=== PATIENT | male | born 1955 | race Caucasian/White ===

== ENCOUNTER → 2023-11-08 10:04 | Outpatient (REF) | payer MEDICARE, OTHER, SELFPAY | LOC: DHCBS HW 10:04 | PROVIDERS: ATTENDING PHYSICIAN Internal Medicine Cardiovascular Disease; FAMILY PHYSICIAN Family Medicine | DX: I35.0 Nonrheumatic aortic (valve) stenosis (principal) | CPT/HCPCS: 93306 ==

== ENCOUNTER → 2024-02-17 10:05 | Outpatient (REF) | payer MEDICARE, OTHER, SELFPAY | LOC: RAD 10:05 | PROVIDERS: ATTENDING PHYSICIAN Internal Medicine Cardiovascular Disease; FAMILY PHYSICIAN Family Medicine | DX: I73.9 Peripheral vascular disease, unspecified (principal); M48.00 Spinal stenosis, site unspecified | CPT/HCPCS: 72110; 93922; 93925 ==

== ENCOUNTER → 2024-06-07 10:03 | Outpatient (REF) | payer MEDICARE, OTHER, SELFPAY | LOC: HWRCS 10:03 | PROVIDERS: ATTENDING PHYSICIAN Internal Medicine Cardiovascular Disease; FAMILY PHYSICIAN Family Medicine | DX: I35.0 Nonrheumatic aortic (valve) stenosis (principal) | CPT/HCPCS: 93306 ==

== ENCOUNTER → 2024-12-13 11:19 | Outpatient (REF) | payer MEDICARE, OTHER, SELFPAY | LOC: HWRCS 11:19 | PROVIDERS: ATTENDING PHYSICIAN Internal Medicine Cardiovascular Disease; FAMILY PHYSICIAN Family Medicine | DX: I35.0 Nonrheumatic aortic (valve) stenosis (principal) | CPT/HCPCS: 93306 ==

== ENCOUNTER 2025-01-24 10:06 | Day surgery (SDC) | payer MEDICARE, OTHER, SELFPAY ==
--- NOTE | 2025-01-23 14:34 | CONSULT.STRU ---
Addendum entered and electronically signed by SALONI Douglas 01/25/25 10:41:
DOS 01/24/2025
Original Note:
Consultation
-
Date/Time Consultation Requested: 01/24/2025
Date/Time Consultation Performed: 01/24/2025
Requesting Provider: Anika Jiang MD
Performing Provider: SALONI Douglas
Reason for Consultation: /TAVR
Patient History
Physicians
Family Physician: Niko Moseley MD
Outpatient Occupational Health Professional: Flash Brown MD
Primary Occupational Health Professional: Flash Brown MD
History of Present Illness
Mr. Mccullough is a very pleasant 69 yom that has a past medical history significant for aortic stenosis, PAF, HTN, HLD, and BPH. His most recent echocardiogram from 12/13/2024 is notable for EF 60-65%, aortic valve P/M 66/39, MAY 1.0, pk elena 4.05, mild
AI, MAC, MG 4, mild to moderate MS, mild TR, PAP 35. From a symptomatology standpoint, patient describes YAO worse over the past several months. Discussed the pathophysiology and treatment options of aortic stenosis including SAVR and TAVR,
Explained the evaluation process comprising of lab work, CT scan, CT surgical consult, dental clearance, and a heart team discussion. TAVR booklet, contact information, prescriptions, and appointments given to patient. Allowed for and answered
questions at bedside.
Past Medical History
Past Medical History: Atrial Fib, BPH, HTN, Valvular Disease (aortic stenosi) and Other (hyperlipidemia)
Past Surgical History
Past Surgical History: Orthopedic (back injections) and Other (cardiac ablation, DCCV)
Dental History
Dr. Evangelist Cabrera-- Patient states he is UTD-- Will send dental clearance
Family History
Mother: at Age (86)
Father: at Age (82)
Social History
Alcohol: None
Drug: None
Tobacco: Non-Smoker
Personal:
Living: With Spouse
Allergies
Allergy/AdvReac Type Severity Reaction Status Date / Time
hydromorphone (From Dilaudid) Allergy Mild Hives Verified 11/29/18 06:46
Home Medications
�Medication �Instructions �Recorded �Confirmed �Type
acetaminophen 325 mg tablet 650 mg PO Q4HPRN PRN pain 12/31/16 01/24/19 History
amlodipine 5 mg tablet (Norvasc) 5 mg PO DAILY 12/31/16 01/24/19 History
apixaban 5 mg tablet (Eliquis) 5 mg PO BID 12/31/16 01/24/19 History
multivitamin (Daily Multiple 1 ea PO DAILY 12/31/16 01/24/19 History
tablet)
cholecalciferol (vitamin D3) 125 5,000 unit PO DAILY 01/24/19 01/24/19 History
mcg (5,000 unit) disintegrating
tablet
dofetilide 250 mcg capsule 250 mcg PO Q12 #60 caps 01/26/19 Rx
metoprolol succinate 25 mg 25 mg PO DAILY #30 tabs 01/26/19 Rx
tablet,extended release 24 hr
STS%
STS %: 2.69
Review of Systems
-
History Source: Patient and Family
General: Reports Fatigue
HEENT: Reports No Symptoms
Respiratory: Reports No Symptoms
Cardiac: Reports No Symptoms
Abdomen/GI: Reports No Symptoms
: Reports No Symptoms
Skin: Reports No Symptoms
Neurological: Reports No Symptoms
Vascular: Reports No Symptoms
Physical Exam
Labs
01/01/2025
HH: 17.2/51.8
plt 209K
BUN/Cr: 21/0.84
Diagnostic Studies
ECHOCARDIOGRAM 12/13/2024:
CONCLUSIONS
Normal left ventricular size and systolic function. No regional wall motion
abnormalities are seen. LV ejection fraction is 60-65% by Canela's method of
discs. Moderate to severe concentric left ventricular hypertrophy. Stage III
diastolic dysfunction suggestive of restrictive filling pattern and increased
filling pressures.
Normal right ventricular size and function.
Thickened mitral valve leaflets with mitral annular calcification, a mean
gradient of 4 mmHg consistent with mild mitral valve stenosis. Mild to
moderate mitral regurgitation.
Calcified, thickened aortic valve with peak and mean gradients of 66 and 39
mmHg, respectively. Estimated MAY is 1.0 cm2., using an LVOT of 2.2 cm.
Moderate to severe aortic stenosis. Mild aortic regurgitation.
Tricuspid valve opens normally with mild tricuspid regurgitation. Estimated
pulmonary artery pressure of 35 mmHg, assuming a right atrial pressure of 3
mmHg.
Proximal ascending aorta is 4.5 cm.
Compared to prior study 06/07/2024 proximal ascending aorta is now 4.5 cm
previously measured at 4.2 cm.
Procedure Type:�Isolated AVR
Perioperative Outcome Estimate %
Operative Mortality 2.69%
Morbidity & Mortality 15%
Stroke 1.1%
Renal Failure 2.27%
Reoperation 4.44%
Prolonged Ventilation 9.51%
Deep Sternal Wound Infection 0.115%
Long Hospital Stay (>14 days) 3.69%
Short Hospital Stay (<6 days)* 38.4%
Exam
General: Well Developed, Well Nourished, No Apparent Distress and Comfortable
HEENT: Normocephalic
Neck: Trachea Midline
Respiratory: Clear
Cardiac: Murmur (iV/ SANDRO)
GI: Soft, Non Tender and Non Distended
Rectal: Deferred by Provider
Skin: Warm and Dry
Neuro: Awake, Alert, Oriented and AO x 3
Extremities: Lower Level Edema
Psych: Calm
Assessment / Plan
-
Aortic Stenosis
Continue TAVR evaluation
Will hold Eliquis x 48 hours before TAVR. Initiate aspirin while Eliquis held. Will d/c aspirin when Eliquis resumed
TAVR CT scan
CT surgical consult
Frailty testing and KCCQ12 at consult
Dental clearance
Heart team discussion
Data Reviewed
-
Scrub Technician: Report Reviewed by me and Discussed with Physician
Echo: Report Reviewed by me and Discussed with Physician
Labs: Labs Reviewed by me
Old Records: Reviewed
Total Time Spent with Patient (in minutes): 45
[2025-01-24] VITALS (12 sets, daily range): BP systolic 106–146; BP diastolic 53–92; BMI 37.8
[2025-01-24] MEDS: LOW STRENGTH ASPIRIN 324 MG PO (11:10)
--- NOTE | 2025-01-24 12:06 | ITS.CL.CATH ---
[facility] - Catheterization
Cardiac Catheterization
Procedure Report:
LEFT AND RIGHT HEART CATHETERIZATION
Date of Procedure: January 24, 2025
Referring: Flash Brown
PROCEDURES:
1. Left heart catheterization, coronary angiogram.
2. Moderate sedation.
3. Right heart catheterization
INDICATION: Severe symptomatic aortic stenosis, preworkup for AVR
ACCESS: Right radial artery, 6Fr. sheath, under US guidance.
HEMODYNAMICS : (mmHg)
RA (m) : 12
RV (s/d,m) : 60/7, 16
PA (s/d, m) : 58/23, 39
PCWP (m) : 28 with V waves to 47 mmHg
PA saturation: 72.4% on room air
AO saturation: 96.0% on room air
RA saturation: 72.3% on room air
Cardiac Output : 4.6 L/min
Cardiac Index : 2.04 L/min/m-2
Systemic vascular resistance: 1470 dsc^(-5)
Pulmonary vascular resistance: 2.35 del angel unit
AO (s/d) : 127/71
CORONARY FINDINGS
Dominance: Right
Left Main Trunk (LMT): Large caliber vessel that gives rise to the LAD and LCx branches and is free of angiographic disease.
Left Anterior Descending Artery (LAD): Large caliber vessel that gives off 2 major diagonal branches as it courses along the anterior inter-ventricular groove before wrapping around the cardiac apex. Proximal LAD has an eccentric 80 to 85%
stenosis at the level of the takeoff of small caliber D1.
Left Circumflex Artery (LCx): Large caliber vessel that gives off 1 major obtuse marginal (OM) branch as it courses along the atrio-ventricular (AV) groove. The LCx and its branches are free of angiographic disease.
Right Coronary Artery (RCA): Medium caliber dominant vessel that gives rise to the posterior descending artery (RPDA) and postero-lateral ventricular (RPLV) branches distally. The distal vessels have mild diffuse atherosclerotic plaque.
SEDATION: 47 minutes of procedural sedation was utilized. IV Midazolam and IV Fentanyl were administered. An independent outside medical sales representative was present to assist with and help manage the patient's level of consciousness and physiologic status.
RADIATION SUMMARY: Fluoro Time (min): 4.9, Dose (mGy): 688.15, DAP (Gy.cm2) : 54
Closure Device: There were no immediate intra-procedural complications. The sheath was pulled in the senior label specialist and a vascular-band applied to the right wrist for radial artery hemostasis using the patent hemostasis technique.
CONCLUSIONS
1. Proximal LAD has a eccentric 80 to 85% stenosis at the level of the takeoff of a small caliber D1.
2. Known severe symptomatic aortic stenosis by most recent echocardiogram.
3. Significantly elevated right and left-sided filling pressures with borderline low cardiac output.
RECOMMENDATIONS
1. Wean radial band per protocol. Monitor right hand perfusion and for bleeding from the radial site following removal of the vascular-band following trans-radial access.
2. Continue aggressive medical therapy and risk factor modification for secondary CAD prevention.
3. Hydrate with normal saline to mitigate the risk of contrast-induced acute kidney injury.
4. Continue with workup for TAVR versus SAVR with a CTA of chest, abdomen and pelvis per proper protocol and CT surgical consult with plan to discuss at structural heart meeting afterwards regarding TAVR plus proximal LAD PCI versus SAVR and
single-vessel CABG
Copy to: Flash Brown
Anika Jiang MD, FAC, [facility]
== END 2025-01-24 15:55 | disposition home or self-care (01) ==
LOC: CATH 10:06
PROVIDERS: ATTENDING PHYSICIAN Internal Medicine Interventional Cardiology; FAMILY PHYSICIAN Family Medicine; OTHER PHYSICIAN Internal Medicine Cardiovascular Disease
DX: I25.10 Atherosclerotic heart disease of native coronary artery without angina pectoris (principal); E78.49 Other hyperlipidemia; I08.3 Combined rheumatic disorders of mitral, aortic and tricuspid valves; I11.0 Hypertensive heart disease with heart failure; I48.0 Paroxysmal atrial fibrillation; I48.91 Unspecified atrial fibrillation
CPT/HCPCS: 99152; 99153; 93456; C1894; Q9967

== ENCOUNTER → 2025-02-06 09:10 | Outpatient (REF) | payer MEDICARE, OTHER, SELFPAY | LOC: RAD 09:10 | PROVIDERS: ATTENDING PHYSICIAN Nurse Practitioner Acute Care; FAMILY PHYSICIAN Family Medicine | DX: I35.0 Nonrheumatic aortic (valve) stenosis (principal) | CPT/HCPCS: 74174; 75572; Q9967 ==

== ENCOUNTER 2025-03-02 08:14 | Inpatient (IN) | payer MEDICARE, OTHER, SELFPAY ==
[2025-02-28 12:03] VITALS: BMI 37.7
[2025-02-28 12:39] LABS: Urine Character Clear (Clear)
[2025-02-28 12:41] LABS: Hematocrit 44.5 % (39.0-52.0); Hemoglobin 15.2 g/dL (13.0-18.0); Mean Corp Hgb Conc. 34.2 g/dL (33.0-37.0); Mean Corpuscular Volume 88.5 fL (80.0-94.0); Nucleated Red Blood Cells % 0 % (-); Platelet Count 171 10^3/uL (130-400); Red Cell Dist. Width 14.0 % (11.5-14.5)
[2025-02-28 12:54] LABS: INR 1.05; PT 14.2 Sec (11.4-14.6)
[2025-02-28 13:01] LABS: ALT (SGPT) 60 U/L (0-50); AST (SGOT) 42 U/L (17-59); Albumin 4.9 g/dl (3.5-5.0); Alkaline Phosphatase 55 U/L (38-126); Blood Urea Nitrogen 20 mg/dl (9-20); Calcium 9.6 mg/dl (8.4-10.2); Carbon Dioxide 27 mmol/L (22-30); Chloride 104 mmol/L (98-107); Estimated Creatinine Clearance 92 ml/min; Glucose 98 mg/dl (70-99); Potassium 4.1 mmol/L (3.5-5.1); Sodium 139 mmol/L (135-145); Total Protein 7.4 g/dl (6.3-8.2); eGFR > 60.00
[2025-02-28 13:48] LABS: Glycohemoglobin (HgbA1c) 5.0 % (4.0-5.6)
--- NOTE | 2025-02-28 15:00 | CM ---
spoke to pt in PAT's, we discussed preop CT surgery instructions including sternal and driving restrictions. he is prev indep, lives with his in a ranch home with a basement he uses daily. there are 5 steps to enter, he has a cpap he uses and
said he will bring in his own mask. he has the cardiac surgery book, soap and instructions. he is agreeable to a f/u visit from the ct transitional care nurse after dc. plan is for AVR/CABG 03/02, cm role explained and all questions answered.
[2025-03-02] VITALS (12 sets, daily range): BP systolic 98–129; BP diastolic 64–81; BMI 37.7
[2025-03-02] MEDS: MAGNESIUM OXIDE 500 MG PO (08:48)
[2025-03-02] MEDS: PROTONIX 40 MG PO (08:48)
[2025-03-02] MEDS: BACTROBAN 2% OINTMENT 1 APPLIC NASAL ×2 (08:48→20:08)
[2025-03-02] MEDS: LOPRESSOR 25 MG PO (08:48)
--- NOTE | 2025-03-02 09:02 | PTCARENOTE ---
Patient admitted to CVICU. Surgical clip and CHG prep completed. BUE BPs obtained. Pre-op meds given. All equipment at bedside to go with patient to CVOR. Patient oriented to room and call callahan system. All needs and questions answered at this time,
call callahan within reach.
--- NOTE | 2025-03-02 10:52 | W.CVOR.SURPR ---
CVOR Surgeon Immed Pre Op
-
I have examined this patient prior to performance of the scheduled procedure.
The patient's condition is unchanged from the time of the dictated/written History and
Physical and the patient is able to undergo the scheduled procedure.
SAVR + MAZE + CABG
[2025-03-02 12:00] LABS: Urine Character Clear (Clear)
[2025-03-02 12:16] LABS: ACT+ - POC 115 Seconds (82-134)
--- NOTE | 2025-03-02 12:34 | CM ---
pt in OR today, cm to follow.
[2025-03-02 14:10] LABS: B.E. - POC 1.5 mmol/L; Glucose - POC 108 mg/dl (70-99); HCO3 - POC 27 mmol/L (21-28); Hematocrit - POC 37 % PCV (42-52); Hemodilution- POC No; Hemoglobin Calculated - POC 12.7; Ionized Calcium - POC 1.18 mmol/L (1.15-1.33); Lactate - POC 0.97 mmol/L (0.36-0.75); O2 Saturation %Calculated-POC 99.5 % (94-98); PCO2 - POC 42 mmHg (35-48); PO2 - POC 162 mmHg (83-108); POC Comment PRE; Potassium - POC 3.7 mmol/L (3.5-5.1); Sodium - POC 141 mmol/L (136-145); Specimen Type - POC Arterial; pH - POC 7.41 (7.35-7.45)
[2025-03-02 14:12] LABS: ACT+ - POC > 1003 Seconds (82-134)
[2025-03-02 14:44] LABS: ACT+ - POC > 1003 Seconds (82-134)
[2025-03-02 14:46] LABS: B.E. - POC 4.4 mmol/L; Glucose - POC 149 mg/dl (70-99); HCO3 - POC 30 mmol/L (21-28); Hematocrit - POC 36 % PCV (42-52); Hemodilution- POC Yes; Hemoglobin Calculated - POC 12.4; Ionized Calcium - POC 1.07 mmol/L (1.15-1.33); Lactate - POC 0.69 mmol/L (0.36-0.75); O2 Saturation %Calculated-POC 99.9 % (94-98); PCO2 - POC 50 mmHg (35-48); PO2 - POC 298 mmHg (83-108); POC Comment CPB; Potassium - POC 4.8 mmol/L (3.5-5.1); Sodium - POC 141 mmol/L (136-145); Specimen Type - POC Arterial; pH - POC 7.39 (7.35-7.45)
[2025-03-02 15:01] LABS: B.E. - POC 4.3 mmol/L; Glucose - POC 181 mg/dl (70-99); HCO3 - POC 31 mmol/L (21-28); Hematocrit - POC 35 % PCV (42-52); Hemodilution- POC Yes; Hemoglobin Calculated - POC 12.0; Ionized Calcium - POC 1.15 mmol/L (1.15-1.33); Lactate - POC 0.93 mmol/L (0.36-0.75); O2 Saturation %Calculated-POC 99.9 % (94-98); PCO2 - POC 56 mmHg (35-48); PO2 - POC 283 mmHg (83-108); POC Comment CPB; Potassium - POC 4.6 mmol/L (3.5-5.1); Sodium - POC 142 mmol/L (136-145); Specimen Type - POC Arterial; pH - POC 7.35 (7.35-7.45)
[2025-03-02 15:03] LABS: ACT+ - POC 877 Seconds (82-134)
[2025-03-02 15:45] LABS: B.E. - POC 2.9 mmol/L; Glucose - POC 177 mg/dl (70-99); HCO3 - POC 28 mmol/L (21-28); Hematocrit - POC 36 % PCV (42-52); Hemodilution- POC Yes; Hemoglobin Calculated - POC 12.1; Ionized Calcium - POC 1.12 mmol/L (1.15-1.33); Lactate - POC 1.00 mmol/L (0.36-0.75); O2 Saturation %Calculated-POC 99.9 % (94-98); PCO2 - POC 42 mmHg (35-48); PO2 - POC 267 mmHg (83-108); POC Comment WARM; Potassium - POC 4.0 mmol/L (3.5-5.1); Sodium - POC 142 mmol/L (136-145); Specimen Type - POC Arterial; pH - POC 7.43 (7.35-7.45)
[2025-03-02 15:49] LABS: ACT+ - POC 134 Seconds (82-134)
[2025-03-02] MEDS: ANCEF 10 IV ×2 (15:54→17:29)
--- NOTE | 2025-03-02 15:56 | CON.INTV ---
Consultation
Consultation Request
Date/Time Consultation Requested: 03/02/25
Date/Time Consultation Performed: 03/02/25
Performing Provider: Tanner
Reason for Consultation: CVICU
Medical History
-
History of Present Illness:
Patient is a 69-year-old male with history of PAF, hypertension, severe presenting for elective cardiac surgery. He has history of severe aortic valve stenosis with moderate to severe concentric LVH. Recent echocardiogram demonstrating
preserved EF without regional wall motion abnormalities. Left heart catheterization was performed which demonstrated proximal LAD disease. Underwent SAVR, LE maze, CABG on 03/02/2025 and postoperatively transferred to CVICU for further management.
Past Medical History
Past Medical History: Other (see list below)
Social History
Tobacco: Non-smoker
Alcohol: None
Drug: None
Family History
Family History: Reviewed & Not Pertinent
Allergies / Home Medications
Allergies
Allergy/AdvReac Type Severity Reaction Status Date / Time
atorvastatin Allergy Mild Unknown Verified 03/02/25 08:47
hydromorphone (From Dilaudid) Allergy Mild Hives Verified 02/23/25 16:30
Home Medications
�Medication �Instructions �Recorded �Confirmed �Last Taken �Type
amlodipine 5 mg tablet (Norvasc) 5 mg PO DAILY Blood Pressure 12/31/16 03/02/25 02/27/25 08:00 History
apixaban 5 mg tablet (Eliquis) 5 mg PO BID Blood Clot 12/31/16 03/02/25 02/26/25 08:00 History
Prevention/Tx
cholecalciferol (vitamin D3) 50 50 mcg PO BID Supplement 02/23/25 03/02/25 03/01/25 08:00 History
mcg (2,000 unit) capsule (Vitamin
D3)
multivitamin 1 tab PO DAILY Supplement 02/23/25 03/02/25 02/18/25 History
aspirin 81 mg tablet,delayed 81 mg PO DAILY Blood Clot 03/02/25 03/02/25 02/28/25 08:00 History
release Prevention/Tx
dofetilide 250 mcg capsule 250 mcg PO Q12 Arrhythmia 03/02/25 03/02/25 03/01/25 20:00 History
furosemide 40 mg tablet (Lasix) 40 mg PO DAILY Fluid 03/02/25 03/02/25 03/01/25 08:00 History
Retention/Swelling
metoprolol succinate 25 mg 25 mg PO BID Blood Pressure 03/02/25 03/02/25 03/01/25 20:00 History
tablet,extended release 24 hr
Review of Systems
-
Unable to Obtain full review of systems at this time due to: Patient Intubation
Vitals / Labs / Diagnostic Testing
Vital Signs
Temp Pulse Resp BP Pulse Ox
97.4 F 59 18 127/64 99
03/02/25 08:26 03/02/25 08:26 03/02/25 08:26 03/02/25 08:26 03/02/25 08:26
Microbiology
02/28/25 12:15 Nose MRSA Screen - Final
No Methicillin Resistant Staphylococcus aureus isolated.
Diagnostic Testing:
Physical Exam
-
HEENT: Normocephalic, Anicteric and Moist Mucous Membranes
Cardiovascular: S1/S2 and Regular Rhythm
Respiratory: Clear, Non-Labored Respirations and Other (ETT/chest tube)
GI: Soft, Non Distended and Non Tender
Neurology: Other (sedated/intubated)
Skin: Warm, Dry and Good Color
General: Comfortable and Other (NAD)
Assessment
-
Patient is a 69-year-old male with history of PAF, hypertension, severe presenting for elective cardiac surgery. He has history of severe aortic valve stenosis with moderate to severe concentric LVH. Recent echocardiogram demonstrating
preserved EF without regional wall motion abnormalities. Left heart catheterization was performed which demonstrated proximal LAD disease. Underwent SAVR, LE maze, CABG on 03/02/2025 and postoperatively transferred to CVICU for further management.
Severe aortic stenosis, CAD s/p SAVR, CABG 03/02/2025
Perioperative mechanical ventilation
Conditions present prior to admission
PAF status post cardioversion x 2, ablation x 2
Hypertension
Hyperlipidemia
BPH
CAD
Obesity
Plan
S/p AVR, CAB POD #0
Titrate off pressors per protocol
ECHO reviewed with normal function/stage IIID
PA catheter readings reviewed
Management of chest tubes per primary service
Intubated/sedated, initiate SAT when able
Pain control
RASS goal of 0 to -1
Intubated for procedure, SBT trial when patient able to spontaneously breath
Current vent settings: SIMV 500/14/60/5
ABG(s) pending
CXR prior reviewed, no acute findings
Repeat pending -- if stable, can SBT
Extubate per protocol
Maintain supplement oxygen as needed
Prior history of pulmonary disease: none
No prior PFTs for review
Can add nebulizers if needed
Aspiration precautions
Encouraged incentive spirometry, OOB/ambulation/early mobility
Advance diet as tolerated following extubation
GI prophylaxis if indicated for mechanical ventilation >48 hours
Monitor critical I/O's
Jesus/chest tube output
Hb/platelets preoperatively stable, repeat labs pending
Can transfuse if indicated for Hb <7, plt <50 in surgical patients
DVT prophylaxis including SCDs
Insulin protocol initiated and ongoing
Transition to SQ/off as indicated per team
We will follow
Diagnostic Data
Chest X-Ray: 03/25/23- No acute cardiopulmonary process.
CT Scan: TAVR 02/06/25- The liver is diffusely hypoattenuating likely secondary to steatosis. Mild prostatomegaly. The urinary bladder is mildly thickened which may represent an element of chronic outlet obstruction.
Echo: 12/13/24- Normal left ventricular size and systolic function. No regional wall motion abnormalities are seen. LV ejection fraction is 60-65% by Canela's method of discs. Moderate to severe concentric left ventricular hypertrophy. Stage III
diastolic dysfunction suggestive of restrictive filling pattern and increased filling pressures. Normal right ventricular size and function. Thickened mitral valve leaflets with mitral annular calcification, a mean
gradient of 4 mmHg consistent with mild mitral valve stenosis. Mild to moderate mitral regurgitation. Calcified, thickened aortic valve with peak and mean gradients of 66 and 39 mmHg, respectively. Estimated MAY is 1.0 cm2., using an LVOT of 2.2
cm. Moderate to severe aortic stenosis. Mild aortic regurgitation. Tricuspid valve opens normally with mild tricuspid regurgitation. Estimated pulmonary artery pressure of 35 mmHg, assuming a right atrial pressure of 3 mmHg. Proximal ascending aorta
is 4.5 cm. Compared to prior study 06/07/2024 proximal ascending aorta is now 4.5 cm previously measured at 4.2 cm.
PFT's:
Reports and relevant images were personally reviewed.
Critical Care time 50 mins -- The patient is admitted for acute critical illness for the treatment of vital organ failure and/or prevention of further life-threatening conditions. Total care includes time spent in review of history, physical exam,
medications, hemodynamic/ventilator parameters, laboratory data, imaging and discussion with house staff, pharmacy, respiratory therapy, mainspring strip gauger, and nursing.
[2025-03-02 16:04] LABS: B.E. - POC 0.8 mmol/L; Glucose - POC 137 mg/dl (70-99); HCO3 - POC 26 mmol/L (21-28); Hematocrit - POC 34 % PCV (42-52); Hemodilution- POC Yes; Hemoglobin Calculated - POC 11.4; Ionized Calcium - POC 1.25 mmol/L (1.15-1.33); Lactate - POC 1.95 mmol/L (0.36-0.75); O2 Saturation %Calculated-POC 99.9 % (94-98); PCO2 - POC 42 mmHg (35-48); PO2 - POC 262 mmHg (83-108); POC Comment POST; Potassium - POC 3.3 mmol/L (3.5-5.1); Sodium - POC 143 mmol/L (136-145); Specimen Type - POC Arterial; pH - POC 7.40 (7.35-7.45)
--- NOTE | 2025-03-02 16:20 | W.PN.CARDCBS ---
Addendum entered and electronically signed by Meir Corrales DO 03/02/25 17:27:
I saw and examined the patient.
The Staff Nuclear Medicine Technologist's note was reviewed and I agree with the note.
Comment:
Patient seen and examined post procedure. Patient status post CABG x 2, maze, clip, ASD closure, AVR
Remains intubated and sedated on mechanical ventilation, levo at 5. EKG sinus rhythm without significant ST-T abnormality
GENERAL: Sedated
EYE: sclera anicteric
NECK: Supple, no JVD, no carotid bruit appreciated
ENT: normal nose, moist mucosal membranes
CARDIAC: Regular rate and rhythm, +S1/S2, no murmur, rubs, or gallops; chest tubes in place, epicardial wire in place
CHEST/PULMONARY: Intubated, mechanical breath sounds globally
ABDOMEN: Soft, without focal tenderness or distention
NEUROLOGICAL: Alert and oriented x3
SKIN: Warm and dry, no rash
PSYCH: Sedated
Telemetry sinus rhythm
EKG sinus rhythm without significant ST-T abnormality
A/P as below
Wean ventilator, pressors as tolerated
Monitor on telemetry
Continue postoperative care resume beta-maria teresa, amlodipine, dofetilide when able
Aspirin, statin; resume anticoagulation when able as well (Eliquis)
Supportive care
Discussed with nursing, CT surgery
Original Note:
Today's Communication / Plan
-
continue post op care
in SR
Impression / Plan
-
Primary Senior Capital Markets Specialist: Dr. Brown
Assessment:
Status post CABG x 2 in situ RODRIGUEZ to LAD, AO to RSVG to diagonal, SEBASTIAN maze, SEBASTIAN clip, iatrogenic ASD closure, surgical bioprosthetic AVR #27 mm 03/02/2025
Severe
Mod to severe LVH
prox LAD disease by cath 01/24/25
Paroxysmal atrial fibrillation s/p PVI and flutter ablation 2016, LA posterior wall isolation 2018
Chronic tikosyn therapy
Chronic OAC with eliquis
HTN
Echo 12/13/2024: EF 60 to 65%, moderate to severe concentric LVH, stage III diastolic dysfunction, MAC, mild to moderate AR, moderate to severe with peak/mean gradient 66/39 mmHg, mild AR, MAY 1.0 cm�, mild TR, PAP 35 mmHg, proximal ascending
aorta 4.5 cm
Plan:
-Status post CABG x 2 in situ RODRIGUEZ to LAD, AO to RSVG to diagonal, SEBASTIAN maze, SEBASTIAN clip, iatrogenic ASD closure, surgical bioprosthetic AVR #27 mm 03/02/2025
-intubated, sedated
-on levo@5, wean as able
-EKG SR without acute ST abnormalities noted. on tikosyn preop, would continue post op if ok per CT surgery
-hgb 13. was on asa, eliquis pre op
-continue post op care
-pre op was on norvasc 5mg daily, toprol 25mg BID, lasix 40mg daily
Progress Note - Senior Capital Markets Specialist
Subjective
Date of Service: March 02, 2025
intubated, sedated
Objective
Labs:
Labs
Hgb 15.2 g/dL (13.0-18.0) 02/28/25 12:15
Hct 44.5 % (39.0-52.0) 02/28/25 12:15
Plt Count 171 10^3/uL (130-400) 02/28/25 12:15
PT 14.2 Sec (11.4-14.6) 02/28/25 12:15
INR 1.05 02/28/25 12:15
Sodium 139 mmol/L (135-145) 02/28/25 12:15
Potassium 4.1 mmol/L (3.5-5.1) 02/28/25 12:15
BUN 20 mg/dl (9-20) 02/28/25 12:15
Creatinine 0.9 mg/dL (0.7-1.3) 02/28/25 12:15
Glucose 98 mg/dl (70-99) 02/28/25 12:15
Vital Signs and I&O:
Vital Signs
Temp Pulse Resp BP Pulse Ox
97.4 F 59 18 127/64 99
03/02/25 08:26 03/02/25 08:26 03/02/25 08:26 03/02/25 08:26 03/02/25 08:26
Vital Signs
Temp Pulse Resp BP Pulse Ox
97.4 F 59 18 127/64 99
03/02/25 08:26 03/02/25 08:26 03/02/25 08:26 03/02/25 08:26 03/02/25 08:26
Physical Exam
Physical Exam
GEN: No distress, intubated, sedated
HEENT: supple, mmm
LUNGS: CTA bilaterally on mechanical ventilation, no wheezes/rales
CV: Reg, S1/S2, no murmur
EXT: No cyanosis, clubbing, edema
NEURO: Gross non-focal
SKIN: Warm, pink, dry. No rash. Sternotomy incision clean dry and intact. Chest tubes in place.
: Jesus with punch colored output
--- NOTE | 2025-03-02 16:24 | W.PN.CT.SURG ---
CT Surgery Operative Note
-
CARDIAC SURGERY OPERATIVE REPORT
Preoperative Diagnosis: Severe aortic valve stenosis with multivessel coronary artery disease and atrial fibrillation on chronic anticoagulation
Postoperative Diagnosis: Same, iatrogenic ASD from previous ablation
Procedure(s) Performed:
1. Standard sternotomy and aortic and bicaval cannulation
2. Internal mammary artery harvesting, left
3. Coronary artery bypass grafting x 2 (In situ RODRIGUEZ to LAD, Ao to RSVG to diagonal)
4. Left atrial maze [RF ablation clamp]
5. Left atrial appendage exclusion
6. Iatrogenic ASD closure, done primarily
7. Placement of temporary ventricular pacing wire
8. Trans-esophageal echocardiography
9. Small open incision for saphenous vein harvest
10. Surgical aortic valve replacement [27 mm bioprosthesis]
Date of Surgery: 03/02/2025
Comorbidities:
1. Severe aortic valve stenosis, symptomatic
2. Paroxysmal atrial fibrillation on Tikosyn and chronic anticoagulation
3. Hypertension
4. Hyperlipidemia
5. BPH
6. CAD involving the proximal LAD and diagonal
Attending Surgeon: Osmany Suárez MD, MS
Assistants: Osmany Sutton PA-C (present and necessary to call center assistant, open vein harvest, retraction, suction, exposure, suture management, and wound closure under my direction)
Anesthesiology: Eliezer Rogers MD and Pietro Pulido CRNA
Scrub and Circulating RNs: Susy Savage RN, Alma Krishnamurthy RN
Batter Depositor: Nicola Day CCP
Anesthesia: GETA
EBL: per perfusion records
Products: None
CPB Time: 102 minutes
Aortic Cross Clamp Time: 78 minutes
Indication(s) for Procedures: This is a 69-year-old male with severe aortic valve stenosis as well as moderate concentric left ventricular pressure 3. He was found to have proximal LAD disease involving an 85% eccentric stenotic lesion that also
extended into the takeoff of the first diagonal vessel with a covered decent territory. In addition to his history of atrial fibrillation, he was offered surgical aortic valve replacement as well as revascularization and maze as well as management
of his left atrial appendage.
Aortic Valve Description: Heavily calcified trileaflet aortic valve with extension of calcium mostly into the noncoronary and left coronary cusp annulus, left and right coronary ostia in the normal anatomic position.
Conduit(s) Quality:
RODRIGUEZ -excellent/skeletonized mean flow and flow probe was 20 cc a minute, due to the mismatch in size of the flow probe and the graft, PI was not able to be obtained
RSVG -excellent/excellent flow at the diagonal vessel, mean flow of 20 cc a minute with a pulsatile index of 2.9
Target(s) Quality:
Diagonal�good quality Target
LAD -good quality Target/good visual flow in the apical segment with visual pinking up of the myocardium
Findings: LVEF on intraoperative NEETU was 60% pre and 60% post procedure with no new regional wall motion abnormalities. There was no prosthetic PVL or AI. Mean gradient across the prosthesis was 8 mmHg this is while his cardiac index was 2.7, he was
hyperdynamic. The RODRIGUEZ was harvested in a skeletonized fashion. Following bypass grafting, test dose cardioplegia was given down each distal and confirmed patency and hemostasis. Flow probe was used to assess both graft that had excellent mean
flows. Left atrial maze was performed using the encompass clamp isolating his posterior wall. Left atrial appendage was also isolated with a 35 mm device flush the base after verifying an echo that there was no debris or thrombus present. He had
a iatrogenic ASD that measured approximately 8 mm to 1 cm in size this is likely secondary to his previous ablation with transapical puncture. This was close primarily using a 4-0 Prolene suture. At the conclusion of the case, he did not require
any blood products, he did not require inotropic support, and he was in his sinus rhythm.
Specimen(s): Aortic valve leaflets.
Prosthesis:
1. 35 mm, serial #[id number]
2. 27 mm Gusman Inspiris Resilia aortic valve bioprosthesis, serial #[id number]
Description of Procedure: The patient was taken to the operating room. Their identity and procedure to be performed were verified and they were positioned supine on the operating table. Induction via general anesthesia with endotracheal intubation
was performed and central venous access and arterial monitoring were inserted. A preoperative transesophageal echocardiogram was performed. The patient was then prepped and draped from chin to feet in a sterile fashion. A preoperative time-out was
performed with all members of the team present. A midline chest incision was performed along with median sternotomy. Simultaneous open access of the right lower extremity for saphenous vein harvest was obtained along with administration of an
initial 5,000 units of IV heparin. A RulTract sternal retractor was positioned to exposure the left internal mammary bed. The mammary was harvested in a skeletonized fashion and found to have good flow. A bulldog clamp was applied to the distal end
of the mammary after dividing it. It was wrapped in a papaverine soaked RayTec and replaced back into the left hemithorax. The RulTract was exchanged for a median sternal retractor. The innominate vein was isolated. Full heparinization was given (a
total of 55,000 units). I created a pericardial well. The aortic cannulation site was chosen where it was soft, pliable, and free of calcium. Cannulation was performed with an arterial cannula in the ascending aorta and bicaval cannulation was
accomplished with a 24 metal tipped cannula into the SVC and a bent valuable 32 Lebanese cannula into the IVC via the right atrium. The arterial cannula line had an appropriate bounce and correlating pressures with test dosing. Next, a root
vent/antegrade cannula was inserted into the ascending aorta. The ACT was confirmed to be over 400 and retrograde autologous priming was performed before commencing cardiopulmonary bypass. At this point the SVC was away from the right
pulmonary artery. The oblique sinus was also developed. The encompass clamp was passed underneath the SVC and IVC across the transverse and oblique sinuses, respectively. 3 successful pairs of ablation were performed. The pulmonary artery was
away from the aorta to facilitate a clamp site. The aortic cross-clamp was placed after decreasing the flow on the bypass and mean arterial pressure. A total of 1.2L initial dose of antegrade Del-Nido cardioplegia solution was given and
planned for re-dosing every 75 minutes as necessary. There was rapid electro-mechanical arrest of the heart at 320 cc of cardioplegia. The left ventricle was observed for distention on echocardiogram and manual palpation. Cold slush was placed into
a sponge and topically on the RV while we systemically cooled to 34 degrees centigrade. Once the heart was fully arrested was rotated medially and the left atrial appendage was clipped flush the base with a 35 mm device. A lap pad was then used to
prop up the heart and expose the LAD and diagonal vessels.
A [place] blade was used to expose the diagonal coronary and perform the arteriotomy. Coronary Callahan scissors were used to enlarge the incision. The saphenous vein was trimmed and beveled to an appropriate size. The distal anastomosis was performed
using 7-0 prolene in an end-to-side fashion. Antegrade cardioplegia was administered into the graft. Appropriate hemostasis and flow were confirmed. The graft was measured for length to the aorta and cut. A suitable target on the mid/distal left
anterior descending was identified. We dissected and prepared the distal target in a similar fashion. We retrieved the RODRIGUEZ from the chest and created a pericardial opening while being cognizant of the phrenic nerve to facilitate the course of the
mammary. The distal end of the mammary was prepped and beveled to size. We verified orientation and length of the ANAID and found brisk flow. An qzyf-bu-bcop anastomosis was created with a 7-0 prolene. We temporarily released the bulldog clamp on the
mammary to inspect flow. Perfusion to the LAD territory was visualized and hemostasis was confirmed. The bull clamp was replaced on the mammary.
Carbon dioxide was used to flood the field. I turned my attention to the aortic valve and manually identified the location of the right coronary take off. An aortotomy was made approximately 1.5cm above the sinotubular junction. The location of both
left and right coronary vessels were visualized in the root. The aortic valve was inspected and found to be heavily calcified. The leaflets were excised and sent for pathological assessment. The annulus was debrided of any calcium. The root and left
ventricular outflow tract were thoroughly irrigated to remove any debris. A total of 13, nonpledgeted 2-0 ethibond annular sutures were placed [id number] circumferentially. These were brought through the sewing cuff of the prosthetic valve which
as then parachuted into place. The left and right coronary ostia were visualized and were unobstructed by the valve. A Cor-Knot device was used to secure the annular sutures. The valve was inspected and was well seated. The aortotomy was
approximated with 4-0 prolene in two layers. The heart was filled and the root was distended with antegrade cardioplegia to make final assessment of graft length and orientation. I created 1 aortotomy using a #11 blade then a 4.0mm aortic punch
above the aortic suture line. The proximal anastomoses were created in an end-to-side fashion using 6-0 prolene. I then isolated the SVC and IVC using Vesseloops and snares. A vertical right atriotomy was then created and the iatrogenic ASD was
visualized at the midportion of the septum. This was then closed merrily using 4-0 Prolene in a running baseball stitch. At this point we started to re-warm to 36.5 degrees centigrade. The bulldog clamp was removed from the mammary and temporary
bipolar ventricular pacing wires were placed on the base of the right ventricle. The patient was placed in a Trendelenburg position and flows on bypass were lowered. The aortic cross clamp was removed and flows were slowly brought back up. The
aortotomy appeared hemostatic. I then closed the right atriotomy while the heart was re-animating and reperfusing. All bypass grafts were inspected and were free from kinking or twisting. The distal and proximal anastomoses appeared hemostatic.
De-airing maneuvers were performed. Transesophageal echocardiography revealed no paravalvular leak and appropriate prosthetic function. Once de-airing was satisfactory, the left ventricular and root vents were removed. After verifying acceptable
parameters, we initiated weaning from cardiopulmonary bypass. Once we were off cardiopulmonary bypass, the venous cannulas was clamped and removed sequentially. A test dose of protamine was administered and the patient was monitored for any adverse
reaction before resuming protamine. Once half of the protamine dose was delivered, pump suckers were turned off and the systolic blood pressure was lowered for aortic decannulation. The aortic cannula was removed and pursestrings were tied down. All
cannulation sites were oversewn with a 4-0 prolene. The aortic line, proximal, and distal coronary anastomoses were hemostatic. The mammary bed was inspected and hemostasis was confirmed. Once the mediastinum was hemostatic, a 19Fr Beny drain was
placed in the left pleural cavity and two 24Fr Beny drains were placed within the pericardium. The sternum was approximated with 4#7 single and 3 #8 double stainless steel wires. Fascia was approximated with #1 vicryl suture. The subcutaneous,
dermis and epidermis were closed in layers in a running fashion. The skin wound was cleansed and dressed.
All instrument, sponge, and needle counts were confirmed to be correct x 2 at the end of the operation. The patient was transferred to the cardiac intensive care unit in critical but stable condition.
I, Dr. Osmany Suárez, was present, scrubbed for, and performed all critical elements of this procedure.
Osmany Suárez MD, MS
Cardiothoracic Surgeon
[facility]
This operative dictation was created using the [employer] dictation system. Please excuse any grammatical, typographical, or 'sound alike' errors
--- NOTE | 2025-03-02 16:30 | PTCARENOTE ---
assumed care of patient @ 1630. received pt from CVOR intubated, sedated on mechanical ventilation. pupils 2 , equal round and reactive. no arrousal to stimuli or voice yet. SR 60s on tele, +pulses - edema. heart tones distant. SBP to be kept
between 90-[address] Suárez. Pas currently 30s/10s, CVP ~ 8. Lungs clear, audible anterioraly. 8.0 ET tube 24 @ lip on SIMV 14, 550, 5/5, 40%. Satting 100 percent and pulling good volumes. L pleural and 2 med chest tubes to wall suction, no air
leak, tidaling or crepitus noted. BS hypoactive. Jesus present draining blood tinged urine. MSI PROPERTY ASSESSMENT MONITOR closed with surgical adhesive, R groin and R SVG harvest sites PROPERTY ASSESSMENT MONITOR closed with surgical glue. R IJ cordis, swan at 51, R AC PIV and L radial A line
all patent. all central lines zeroed, flushed. recieved on 3 of levo, .5 of precedex, insulin per protocol. initial index 1.5, CTNP notified and advised to give 250 LR. K repleted.
[2025-03-02 16:37] LABS: Glucose - Point of Care 132 mg/dl (70-99)
[2025-03-02 16:45] LABS: B.E. 0.1 mmol/L; HCO3 24.7 mmol/L (21-28); O2 Saturation % 100.0 % (94-98); PCO2 39 mmHg (35-48); PO2 134 mmHg (83-108); Potassium 3.7 mMOL/L (3.5-5.1); Sodium 136 mMOL/L (136-145)
[2025-03-02 16:46] LABS: Hematocrit 36.6 % (39.0-52.0); Hemoglobin 13.0 g/dL (13.0-18.0); Platelet Count 142 10^3/uL (130-400)
[2025-03-02 16:55] LABS: INR 1.58; PT 19.1 Sec (11.4-14.6)
[2025-03-02 16:56] LABS: APTT 38.2 Sec (23.4-35.0)
[2025-03-02] MEDS: KCL 50 IV ×2 (17:00→18:08)
[2025-03-02 17:02] LABS: Blood Urea Nitrogen 17 mg/dl (9-20); Estimated Creatinine Clearance 118 ml/min; Glucose 133 mg/dl (70-99); Magnesium 2.7 mg/dl (1.6-2.3)
[2025-03-02] MEDS: LR 250 ML IV ×2 (17:03→18:06)
[2025-03-02 17:12] LABS: Glucose - Point of Care 127 mg/dl (70-99)
[2025-03-02] MEDS: NOVOLOG FLEXPEN SC ×2 (17:29)
[2025-03-02] MEDS: NSS 500 IV (17:29)
[2025-03-02] MEDS: NEURONTIN PO (17:32)
[2025-03-02] MEDS: TYLENOL PO ×2 (17:32→22:47)
--- NOTE | 2025-03-02 18:00 | SUR.OPER ---
index 1.3 and SVR 1875, CTNP notified who advised to give additional 250 fluid. pressure stable on 2 of levo at 100s/60s. urine clearing up. family at bedside
[2025-03-02 18:02] LABS: Glucose - Point of Care 160 mg/dl (70-99)
[2025-03-02 19:03] LABS: Glucose - Point of Care 124 mg/dl (70-99)
--- NOTE | 2025-03-02 19:35 | PTCARENOTE ---
Assumed care of patient at 1900. Patient found resting in bed at time of assessment. Patient is intubated, currently unresponsive, pupils equal and reactive approx 2mm in size. Lung sounds appear clear and equal bilaterally, patient has 8.0 ETT
sitting 24cm on the lip, currently ventilator assisted breathing with SIMV settings see worklist item for details. saO2 100% on 40% FiO2. Patient has CTx3 to wall suction: L pleural to one atrium and 2xmeds to another atrium draining red
sanguineous. Heart sounds are distant, but audible. Patient is SR on the monitor. Patient has normal palpable pulses throughout and no observable edema. V wires are present connected to box, but off. Patient has hypoactive BS throughout all four
quadrants. There is a addison catheter draining yellow clear urine at this time patient reportedly had hematuria post op. There is a sternal incision approx with surg adhesive FRANTZ and RLE incision with PAMDINI wrap that is CDI. Patient has R IJ cordis
with swan@51cm, L radial barbara, and R AC PIV. Patient currently receiving insulin col 2, Levo@4, and precedex@0.1. Vital signs as follows: T-97.4, P-64 BP-95/61, RR-14 PAP-32/18, CVP-8, CI-1.54. Call callahan within reach.
[2025-03-02] MEDS: LR IV (20:06)
[2025-03-02] MEDS: SENOKOT-S PO (20:07)
[2025-03-02] MEDS: VITAMIN D3 (cholecalciferol) PO (20:07)
[2025-03-02] MEDS: LR 250 IV (20:09)
[2025-03-02 20:13] LABS: Glucose - Point of Care 126 mg/dl (70-99)
--- NOTE | 2025-03-02 20:15 | PTCARENOTE ---
Patient with low CI at start of shift. Notified CT COMMERCIAL TELLER. Received orders for 250mL LR bolus followed by 750ml gentle IVF at 75ml/hr.
[2025-03-02] MEDS: LR 750 IV (20:31)
[2025-03-02 20:38] LABS: Hematocrit 36.7 % (39.0-52.0); Hemoglobin 13.0 g/dL (13.0-18.0); Platelet Count 182 10^3/uL (130-400)
[2025-03-02 21:09] LABS: Glucose - Point of Care 140 mg/dl (70-99)
[2025-03-02 21:38] LABS: B.E. -0.8 mmol/L; HCO3 24.3 mmol/L (21-28); O2 Saturation % 99.4 % (94-98); PCO2 41 mmHg (35-48); PO2 139 mmHg (83-108); Potassium 4.6 mMOL/L (3.5-5.1)
--- NOTE | 2025-03-02 21:51 | PTCARENOTE ---
Patient showing signs of waking up. Following commands appropriately. Began CPAP trial at 2104. ABG drawn at 2134. Patient extubated 2142 placed on 6L via NC. Patient is fully oriented and appropriate on assessment. Educated on IS. C/o some chest
discomfort CT TAXATION ACCOUNTANT contacted for IV ofrimev.
[2025-03-02] MEDS: OFIRMEV 100 IV (21:58)
[2025-03-02] MEDS: ANCEF 5 IV (21:59)
--- NOTE | 2025-03-02 22:00 | RESPNOTE ---
Pt extubated at 2143 to 6L NC. Pt tolerated extubation well and is doing well on the NC. Pt did IS post extubation.
[2025-03-02] MEDS: TIKOSYN PO (22:13)
[2025-03-02] MEDS: CALCIUM GLUCONATE 100 IV (22:14)
[2025-03-02] MEDS: LIPITOR 20 MG PO (22:53)
[2025-03-02] MEDS: NEURONTIN 100 MG PO (22:53)
[2025-03-02] MEDS: ULTRAM 50 MG PO (22:53)
[2025-03-02] MEDS: LOW STRENGTH ASPIRIN 81 MG PO (23:06)
[2025-03-02 23:10] LABS: Glucose - Point of Care 142 mg/dl (70-99)
[2025-03-03] VITALS (29 sets, daily range): BP systolic 87–140; BP diastolic 54–83; PULSE 68; O2SAT 98; BMI 38.1
--- NOTE | 2025-03-03 | PTCARENOTE ---
Patient reassessed. Remains SR on the monitor. Patient c/o pain and discomfort of sternum and LUE upon extubation. IV ofirmev administered without relief. Confirmed patient tolerating PO intake and gave ultram with HS meds. Call callahan within reach
[2025-03-03 01:09] LABS: Glucose - Point of Care 131 mg/dl (70-99)
--- NOTE | 2025-03-03 01:16 | W.PN.CT ---
Addendum entered and electronically signed by Bertin Santa MD 03/03/25 09:42:
I saw and examined the patient.
The PA's note was reviewed and I agree with the note.
Comment:
MICHELET [id number]: POD#1 s/p AVR, CABG x 2, ASD repair, MAZE, ELAA
Doing well. AVSS. 2L NC. No gtts. CTs OK.
- Wean to RA
- Maintain CTs today
- Light diuresis given
- OOB/IS/ambulate later
- Contine tikosyn
- Plan to restart Eliquis on POD#3
Original Note:
Today's Communication / Plan
-
- Doing well.� No major events overnight
- Extubated at 2143 hrs to LFNC
- Tele review: NSR
- Gtt's: Levophed off at 0500 today, insulin
- RA 11 PA 32/18 CO 4.57 CI 2.04 SVR 1067, De-lined this AM
- CTs: 2m 205/335 cc, LPL 145/205 cc out in 12/24 hrs
- UOP 435/675 cc in 12/24 hrs
- wean down/off O2, IS use reinforced
- Continue current meds: asa, Plavix, atorvastatin, Tikosyn, metoprolol, PPI
- Bowel regimen
- OOB, ambulate as tolerated
Assessment / Plan
-
Severe , MVCAD, Afib s/p CABG x2 (In situ RODRIGUEZ to LAD, Ao to RSVG to diagonal), MAZE, SEBASTIAN clip (35 mm), iatrogenic ASD closure, bio AVR (27 mm Gusman inspiris resilia) on 03/[address] Suárez POD #1
post op NEETU: 60% LVEF, no RWMA, no prosthetic PVL or AI. MG 8 while CI 2.7
Severe
Mod to severe LVH
prox LAD disease by cath 01/24/25
Paroxysmal atrial fibrillation s/p PVI and flutter ablation 2017, LA posterior wall isolation 2018
Chronic tikosyn therapy
Chronic OAC with eliquis
HTN
Acute post op respiratory insufficiency
Acute post op anemia (expected)
Acute post op hematuria, resolved
Acute post op coagulopathy
Subjective
Procedure
s/p CABG x2 (In situ RODRIGUEZ to LAD, Ao to RSVG to diagonal), MAZE, SEBASTIAN clip (35 mm), iatrogenic ASD closure, bio AVR (27 mm Gusman inspiris resilia) on 03/[address] Suárez
-
Date of Service: March 03, 2025
Objective Data
-
PT 19.1 Sec (11.4-14.6) H 03/02/25 16:33
INR 1.58 03/02/25 16:33
APTT 38.2 Sec (23.4-35.0) H 03/02/25 16:33
Vital Signs
Vital Signs
Temp Pulse Resp BP Pulse Ox
97.1 F 65 18 112/67 100
03/03/25 01:04 03/03/25 00:45 03/03/25 01:04 03/03/25 00:00 03/03/25 01:04
CT Intake/Output/Weight
03/02/25 03/02/25 03/03/25
06:59 18:59 06:59
Intake Total 446.2 / 1573.9 1127.7 / 1573.9
Output Total 430 / 960 530 / 960
Balance 16.2 / 613.9 597.7 / 613.9
SaO2: 100
Physical Exam
-
General: Awake, Oriented and AOx3
Cardiovascular: Regular rate & rhythm, No Murmurs and No Rub
Respiratory: Clear, Equal and Decreased Breath Sounds
Sternum: Stable
Incision: Clean, Dry and Intact
Extremities: Edema +1 and No Erythema
Data Reviewed
-
Lab Results: Results Reviewed
Medications: Active Meds Reviewed
Chest X-Ray: Report Reviewed and Image Reviewed
ECG: Report Reviewed
[2025-03-03 02:08] LABS: Glucose - Point of Care 127 mg/dl (70-99)
[2025-03-03] MEDS: LR 250 ML IV (02:11)
[2025-03-03 03:06] LABS: Glucose - Point of Care 131 mg/dl (70-99)
[2025-03-03 03:20] LABS: Hematocrit 35.1 % (39.0-52.0); Hemoglobin 12.4 g/dL (13.0-18.0); Mean Corp Hgb Conc. 35.3 g/dL (33.0-37.0); Mean Corpuscular Volume 86.2 fL (80.0-94.0); Platelet Count 171 10^3/uL (130-400); Red Cell Dist. Width 13.8 % (11.5-14.5)
[2025-03-03 03:44] LABS: Blood Urea Nitrogen 19 mg/dl (9-20); Calcium 8.8 mg/dl (8.4-10.2); Carbon Dioxide 25 mmol/L (22-30); Chloride 108 mmol/L (98-107); Estimated Creatinine Clearance 103 ml/min; Glucose 132 mg/dl (70-99); Magnesium 2.2 mg/dl (1.6-2.3); Potassium 4.6 mmol/L (3.5-5.1); Sodium 138 mmol/L (135-145); eGFR > 60.00
[2025-03-03 04:03] LABS: Glucose - Point of Care 123 mg/dl (70-99)
[2025-03-03] MEDS: ZOFRAN 4 MG IV (04:19)
[2025-03-03 05:39] LABS: Glucose - Point of Care 114 mg/dl (70-99)
--- NOTE | 2025-03-03 06:00 | PTCARENOTE ---
pt spent all day OOB. assisted back to bed with 2 people. needed increase in insulin requirments through the day, ctpa notified. will continue insulin drip for tonight. IV working appropriately with good blood return. tramadol given for pain. now
resting in bed with call callahan within reach .
[2025-03-03] MEDS: TYLENOL 1000 MG PO ×3 (06:16→22:06)
[2025-03-03] MEDS: ULTRAM 50 MG PO ×3 (06:17→18:35)
[2025-03-03] MEDS: ANCEF 5 IV ×2 (06:17→14:08)
--- NOTE | 2025-03-03 06:50 | PTCARENOTE ---
Patient reassessed. Remains SR with PACs on the monitor. Additional dose ultram. Levo tapered to off. Delined. Jesus out 624. OOB to chair without incident.
[2025-03-03 07:04] LABS: Glucose - Point of Care 116 mg/dl (70-99)
--- NOTE | 2025-03-03 07:34 | W.PN.INTV ---
Today's Communication / Plan
Recommendations
Extubated and doing well, stable off pressors
Titrating insulin gtt to SQ
Pain control per team
Encouraged OOB, PT/IS
Further postop management per team
Assessment
-
Patient is a 69-year-old male with history of PAF, hypertension, severe presenting for elective cardiac surgery. He has history of severe aortic valve stenosis with moderate to severe concentric LVH. Recent echocardiogram demonstrating
preserved EF without regional wall motion abnormalities. Left heart catheterization was performed which demonstrated proximal LAD disease. Underwent SAVR, LE maze, CABG on 03/02/2025 and postoperatively transferred to CVICU for further management.
Severe aortic stenosis, CAD s/p SAVR, CABG 03/02/2025
Perioperative mechanical ventilation
Conditions present prior to admission
PAF status post cardioversion x 2, ablation x 2
Hypertension
Hyperlipidemia
BPH
CAD
Obesity
Plan
S/p AVR, CAB POD #1
Titrated off pressors per protocol
ECHO reviewed with normal function/stage IIID
PA catheter readings reviewed
Management of chest tubes per primary service
Intubated/sedated, initiate SAT when able
Pain control
RASS goal of 0 to -1
Intubated for procedure, extubated and doing well
ABG(s) adequate
CXR prior reviewed, no acute findings, repeat with stable postop changes
Maintain supplement oxygen as needed
Prior history of pulmonary disease: none
Suspect [place], OP PSG recommended
No prior PFTs for review
Can add nebulizers if needed
Aspiration precautions
Encouraged incentive spirometry, OOB/ambulation/early mobility
Advance diet as tolerated following extubation
GI prophylaxis if indicated for mechanical ventilation >48 hours
Monitor critical I/O's
Jesus/chest tube output
Hb/platelets preoperatively stable, repeat labs pending
Can transfuse if indicated for Hb <7, plt <50 in surgical patients
DVT prophylaxis including SCDs
Insulin protocol initiated and ongoing
Transition to SQ/off as indicated per team
Diagnostic Data
Chest X-Ray: 03/25/23- No acute cardiopulmonary process.
CT Scan: TAVR 02/06/25- The liver is diffusely hypoattenuating likely secondary to steatosis. Mild prostatomegaly. The urinary bladder is mildly thickened which may represent an element of chronic outlet obstruction.
Echo: 12/13/24- Normal left ventricular size and systolic function. No regional wall motion abnormalities are seen. LV ejection fraction is 60-65% by Canela's method of discs. Moderate to severe concentric left ventricular hypertrophy. Stage III
diastolic dysfunction suggestive of restrictive filling pattern and increased filling pressures. Normal right ventricular size and function. Thickened mitral valve leaflets with mitral annular calcification, a mean
gradient of 4 mmHg consistent with mild mitral valve stenosis. Mild to moderate mitral regurgitation. Calcified, thickened aortic valve with peak and mean gradients of 66 and 39 mmHg, respectively. Estimated MAY is 1.0 cm2., using an LVOT of 2.2
cm. Moderate to severe aortic stenosis. Mild aortic regurgitation. Tricuspid valve opens normally with mild tricuspid regurgitation. Estimated pulmonary artery pressure of 35 mmHg, assuming a right atrial pressure of 3 mmHg. Proximal ascending aorta
is 4.5 cm. Compared to prior study 06/07/2024 proximal ascending aorta is now 4.5 cm previously measured at 4.2 cm.
PFT's:
Reports and relevant images were personally reviewed.
Critical Care time 31 mins -- The patient is admitted for acute critical illness for the treatment of vital organ failure and/or prevention of further life-threatening conditions. Total care includes time spent in review of history, physical exam,
medications, hemodynamic/ventilator parameters, laboratory data, imaging and discussion with house staff, pharmacy, respiratory therapy, pet ambassador, and nursing.
Subjective Dataa
Subjective Data
Date of Service:
Date of Service: March 03, 2025
Chief Complaint: Adult Basic Education Teacher Follow Up
Subjective:
Doing well post extubation, remains on insulin gtt
Pain is 6-7/10
Sitting in chair
Objective Data
Data Reviewed
Vital Signs / I&O / Oxygen:
Vital Signs
Temp Pulse Resp BP Pulse Ox
97.4 F 67 18 87/54 96
03/03/25 06:15 03/03/25 07:02 03/03/25 07:00 03/03/25 07:02 03/03/25 07:02
Intake and Output
03/02/25 03/03/25 03/04/25
06:59 06:59 06:59
Intake Total 2337.2 / 2425.7 88.5 / 88.5
Output Total 1270 / 1335 65 / 65
Balance 1067.2 / 1090.7 23.5 / 23.5
SaO2 [SIMV] 100
SaO2 96
Nasal Cannula flow liters per 2
minute
Physical Exam
General: Comfortable, Pain and Other (NAD)
HEENT: Normocephalic, Anicteric and Moist Mucous Membranes
Cardiovascular: S1-S2 and Regular Rhythm
Respiratory: Clear, Non-Labored Respirations and Chest Tube
GI: Soft, Non Distended and Non Tender
Neurology: Awake, Alert, Oriented and No Motor Deficits
Skin: Warm, Dry and Good Color
Labs/Micro/Reports
Lab Data
03/03/25 03:10
03/03/25 03:10
Laboratory Results
03/02/25 03/02/25
16:33 21:33
PT 19.1 H
INR 1.58
APTT 38.2 H
pH 7.41 7.38
pCO2 39 41
pO2 134 H 139 H
HCO3 24.7 24.3
O2 Delivery Level
Microbiology
02/28/25 12:15 Nose MRSA Screen - Final
No Methicillin Resistant Staphylococcus aureus isolated.
--- NOTE | 2025-03-03 08:00 | PTCARENOTE ---
assumed care of patient @ 0700. received pt sitting in chair, Aox3. BP soft in chair. HR 60s, metoprolol to be held per ctpa. +pp, -e. Lungs clear, diminished on 2L satting high 90s. productive occasional cough. 3 chest tubes to wall suction, no air
leak, tidaling or crepitus. IS 750, coughing and deep breathing encouraged. BS hypoactive, pt ordered clear liquid tray for breakfast. mild nausea/dry heaving episode after ambulation. states no nausea now. DTV by noon. Surgical inscisions CDI, FRANTZ
closed with surgical glue. R IJ cordis, PIV both patent. pt now resting in chair with call callahan within reach .
[2025-03-03] MEDS: NOVOLOG FLEXPEN SC ×2 (08:37→13:59)
[2025-03-03] MEDS: LOW STRENGTH ASPIRIN 81 MG PO (08:42)
[2025-03-03] MEDS: MAGNESIUM OXIDE 500 MG PO ×2 (08:42→20:34)
[2025-03-03] MEDS: VITAMIN D3 (cholecalciferol) 50 MCG PO ×2 (08:43→20:34)
[2025-03-03] MEDS: PROTONIX 40 MG PO (08:43)
[2025-03-03] MEDS: SENOKOT-S 1 TABLET PO ×2 (08:43→20:35)
[2025-03-03] MEDS: PLAVIX 75 MG PO (08:43)
[2025-03-03] MEDS: LOPRESSOR PO (08:44)
[2025-03-03] MEDS: NEURONTIN 100 MG PO ×3 (08:44→22:06)
[2025-03-03] MEDS: TIKOSYN 250 MCG PO ×2 (08:44→20:34)
[2025-03-03] MEDS: LIDOCAINE 4% PATCH 1 PATCH TOPICAL (08:44)
[2025-03-03] MEDS: BACTROBAN 2% OINTMENT 1 APPLIC NASAL ×2 (08:45→20:35)
--- NOTE | 2025-03-03 09:08 | W.PN.ANS.POP ---
Anesthesia Post Operative
- Anesthesia Post Op Note
Vital Signs Stable-See Nursing Note: Yes
Airway Patent: Yes
Adequate Pain Control: Yes
Change in Mental Status: No
Current Postoperative Nausea & Vomiting: No
Anesthesia Complications: No
General Anesthetic Recall: No
Unplanned Admission: No
Post Op Hydration Adequate: Yes
[2025-03-03 09:16] LABS: Glucose - Point of Care 126 mg/dl (70-99)
[2025-03-03 10:05] LABS: Glucose - Point of Care 126 mg/dl (70-99)
--- NOTE | 2025-03-03 10:05 | W.PN.CARDCBS ---
Today's Communication / Plan
-
Repeat EKG
Routine postoperative care
Resume goal-directed medical therapy as indicated/when able
Impression / Plan
-
Primary Pulverizer Feeder: Dr. Brown
Assessment:
Status post CABG x 2 in situ RODRIGUEZ to LAD, AO to RSVG to diagonal, SEBASTIAN maze, SEBASTIAN clip, iatrogenic ASD closure, surgical bioprosthetic AVR #27 mm 03/02/2025
Severe
Mod to severe LVH
prox LAD disease by cath 01/24/25
Paroxysmal atrial fibrillation s/p PVI and flutter ablation 2016, LA posterior wall isolation 2018
Chronic tikosyn therapy
Chronic OAC with eliquis
HTN
Echo 12/13/2024: EF 60 to 65%, moderate to severe concentric LVH, stage III diastolic dysfunction, MAC, mild to moderate AR, moderate to severe with peak/mean gradient 66/39 mmHg, mild AR, MAY 1.0 cm�, mild TR, PAP 35 mmHg, proximal ascending
aorta 4.5 cm
Plan:
-Status post CABG x 2 in situ RODRIGUEZ to LAD, AO to RSVG to diagonal, SEBASTIAN maze, SEBASTIAN clip, iatrogenic ASD closure, surgical bioprosthetic AVR #27 mm 03/02/2025
- Extubated 03/02/2025
-on levo@5, wean as able
-EKG SR without acute ST abnormalities noted. on tikosyn preop, would continue post op if ok per CT surgery; QT/QTc 414/434 ms this a.m. which is stable
-hgb 13. was on asa, eliquis pre op; resume when able
-continue post op care
-pre op was on norvasc 5mg daily, toprol 25mg BID, lasix 40mg daily; resume when able pending blood pressure
Progress Note - Pulverizer Feeder
Subjective
Date of Service: March 03, 2025
Patient seen and examined this morning. No acute events overnight. Patient resting comfortably in chair denies any chest pain, shortness of breath, lightheadedness, dizziness, near-syncope, syncope, or weakness.
Objective
Labs:
03/03/25 03:10
03/03/25 03:10
Labs
Hgb 12.4 g/dL (13.0-18.0) L 03/03/25 03:10
Hct 35.1 % (39.0-52.0) L 03/03/25 03:10
Plt Count 171 10^3/uL (130-400) 03/03/25 03:10
PT 19.1 Sec (11.4-14.6) H 03/02/25 16:33
INR 1.58 03/02/25 16:33
APTT 38.2 Sec (23.4-35.0) H 03/02/25 16:33
Sodium 138 mmol/L (135-145) 03/03/25 03:10
Potassium 4.6 mmol/L (3.5-5.1) 03/03/25 03:10
BUN 19 mg/dl (9-20) 03/03/25 03:10
Creatinine 0.8 mg/dL (0.7-1.3) 03/03/25 03:10
Glucose 132 mg/dl (70-99) H 03/03/25 03:10
Vital Signs and I&O:
Vital Signs
Temp Pulse Resp BP Pulse Ox
97.9 F 70 16 115/83 99
03/03/25 08:00 03/03/25 09:00 03/03/25 09:02 03/03/25 09:00 03/03/25 09:02
Vital Signs
Temp Pulse Resp BP Pulse Ox
97.9 F 70 16 115/83 99
03/03/25 08:00 03/03/25 09:00 03/03/25 09:02 03/03/25 09:00 03/03/25 09:02
Intake & Output
03/01/25 03/02/25 03/03/25 03/04/25
06:59 06:59 06:59 06:59
Intake Total 2337.2 / 2425.7 112.0 / 112.0
Output Total 1270 / 1335 135 / 135
Balance 1067.2 / 1090.7 -23.0 / -23.0
Physical Exam
Physical Exam
GEN: No distress, ANO x 3, nasal cannula
HEENT: supple, mmm
LUNGS: Poor inspiratory effort, CTA, no wheezes/rales
CV: Reg, S1/S2, no murmur
EXT: No cyanosis, clubbing, edema
NEURO: Gross non-focal
SKIN: Warm, pink, dry. No rash. Sternotomy incision clean dry and intact. Chest tubes in place.
: Jesus with punch colored output
telemetry shows sinus rhythm
[2025-03-03] MEDS: NOVOLIN R INSULIN INFUSION 100 IV (10:48)
[2025-03-03] MEDS: LASIX 40 MG IV (11:25)
[2025-03-03 12:08] LABS: Glucose - Point of Care 137 mg/dl (70-99)
--- NOTE | 2025-03-03 12:16 | PTCARENOTE ---
40 IV lasix given. pt voided 400 with PVR of 150. resting comfortably in chair with call callahan within reach .
[2025-03-03 13:07] LABS: Glucose - Point of Care 128 mg/dl (70-99)
[2025-03-03 14:06] LABS: Glucose - Point of Care 119 mg/dl (70-99)
[2025-03-03] MEDS: FLEXERIL 5 MG PO (14:06)
[2025-03-03] MEDS: FERRLECIT 110 MG IV (14:08)
[2025-03-03 16:02] LABS: Glucose - Point of Care 131 mg/dl (70-99)
[2025-03-03] MEDS: NOVOLOG FLEXPEN 4 UNITS SC (17:18)
[2025-03-03 17:59] LABS: Glucose - Point of Care 187 mg/dl (70-99)
[2025-03-03 19:01] LABS: Glucose - Point of Care 133 mg/dl (70-99)
--- NOTE | 2025-03-03 20:00 | PTCARENOTE ---
Assumed care of patient at 1999. Patient found resting in bed at time of assessment. Patient is AOx4, follows commands appropriately, moves all extremities. Lung sounds a clear and equal bilaterally, wears CPAP HS, saO2 98% on RA, CTx3: L pleural to
one atrium and 2xmeds to another atrium. Heart sounds are audible, SR on the monitor, normal palpable pulses and trace pedal edema. There is a rub present on auscultation. V wire is present connected to box, but off. Patient has active BS in all
four quadrants, voids clear yellow. R IJ cordis receiving KVO. R wrist PIV receiving insulin gtt col 5. Call callahan within reach. VSS.
[2025-03-03 20:17] LABS: Glucose - Point of Care 109 mg/dl (70-99)
[2025-03-03] MEDS: LOPRESSOR 12.5 MG PO (20:33)
[2025-03-03] MEDS: ROXICODONE 5 MG PO (20:34)
[2025-03-03] MEDS: REMOVE LIDOCAINE PATCH 1 PATCH REMOVE (20:35)
[2025-03-03] MEDS: NSS IV (20:35)
[2025-03-03 21:07] LABS: Glucose - Point of Care 97 mg/dl (70-99)
[2025-03-03 22:06] LABS: Glucose - Point of Care 96 mg/dl (70-99)
[2025-03-03] MEDS: LIPITOR 20 MG PO (22:06)
[2025-03-03] MEDS: LOPRESSOR 2.5 MG IV (23:36)
[2025-03-03 23:46] LABS: Glucose - Point of Care 99 mg/dl (70-99)
--- NOTE | 2025-03-03 23:50 | PTCARENOTE ---
At 2326 patient has short run of SVT that resolved spontaneously. Patient asymptomatic, sleeping at the time. CT INTELLECTUAL PROPERTY LAWYER notified. Received orders for 2.5mg IV lopressor.
[2025-03-04] VITALS (14 sets, daily range): BP systolic 89–130; BP diastolic 56–73; BMI 38.9
--- NOTE | 2025-03-04 | PTCARENOTE ---
Patient reassessed. VSS. Remains SR on the monitor. Patient wearing CPAP. Roxicodone added for pain management. Call callahan within reach.
[2025-03-04 01:34] LABS: Glucose - Point of Care 109 mg/dl (70-99)
[2025-03-04 03:18] LABS: Glucose - Point of Care 88 mg/dl (70-99)
[2025-03-04 03:50] LABS: Hematocrit 32.7 % (39.0-52.0); Hemoglobin 11.2 g/dL (13.0-18.0); Mean Corp Hgb Conc. 34.3 g/dL (33.0-37.0); Mean Corpuscular Volume 88.6 fL (80.0-94.0); Platelet Count 132 10^3/uL (130-400); Red Cell Dist. Width 14.5 % (11.5-14.5)
--- NOTE | 2025-03-04 04:00 | PTCARENOTE ---
Patient reassessed. VSS. Remains SR on the monitor. AM hygiene care provided. OOB to chair without incident.
[2025-03-04 04:09] LABS: Blood Urea Nitrogen 23 mg/dl (9-20); Calcium 9.2 mg/dl (8.4-10.2); Carbon Dioxide 30 mmol/L (22-30); Chloride 99 mmol/L (98-107); Estimated Creatinine Clearance 104 ml/min; Glucose 95 mg/dl (70-99); Magnesium 2.2 mg/dl (1.6-2.3); Potassium 4.3 mmol/L (3.5-5.1); Sodium 134 mmol/L (135-145); eGFR > 60.00
[2025-03-04] MEDS: TYLENOL 1000 MG PO ×3 (05:15→21:37)
[2025-03-04] MEDS: NOVOLIN R INSULIN INFUSION 100 IV (05:16)
--- NOTE | 2025-03-04 06:06 | W.PN.CT ---
Addendum entered and electronically signed by Bertin Santa MD 03/04/25 09:26:
I saw and examined the patient.
The PA's note was reviewed and I agree with the note.
Comment:
POD#2
- D/C CTs today
- Leukocytosis likely reactionary s/p surgery, will follow closely w/ low threshold for culture/prophylactic abx should he develop fevers or have worsening leukocytosis tomorrow
- Continue BB
- Eliquis tomorrow
- OOB/IS/ambulate
Original Note:
Today's Communication / Plan
-
- No major events overnight
- Tele review: NSR, AT burst for ~10 seconds, resolved spontaneously. gave additional BB
- CTs: 2m 60/245 cc, LPL 10/170 cc out in 12/24 hrs
- UOP 150/1350 cc in 12/24 hrs
- wean down/off O2, IS use reinforced
- Continue current meds: asa, Plavix, atorvastatin, Tikosyn, metoprolol, PPI
- Bowel regimen
- OOB, ambulate as tolerated.
- tentitive plan to resume apixaban on POD #3
Assessment / Plan
-
Severe , MVCAD, Afib s/p CABG x2 (In situ RODRIGUEZ to LAD, Ao to RSVG to diagonal), MAZE, SEBASTIAN clip (35 mm), iatrogenic ASD closure, bio AVR (27 mm Gusman inspiris resilia) on 03/[address] Suárez POD #2
post op NEETU: 60% LVEF, no RWMA, no prosthetic PVL or AI. MG 8 while CI 2.7
Severe
Mod to severe LVH
prox LAD disease by cath 01/24/25
Paroxysmal atrial fibrillation s/p PVI and flutter ablation 2016, [place] posterior wall isolation 2018
Chronic tikosyn therapy
Chronic OAC with eliquis
HTN
Acute post op respiratory insufficiency
Acute post op anemia (expected)
Acute post op hematuria, resolved
Acute post op coagulopathy
Subjective
Procedure
s/p CABG x2 (In situ RODRIGUEZ to LAD, Ao to RSVG to diagonal), MAZE, SEBASTIAN clip (35 mm), iatrogenic ASD closure, bio AVR (27 mm Gusman inspiris resilia) on 03/[address] Suárez
-
Date of Service: March 04, 2025
Objective Data
-
Lab Results
03/04/25 03:33
03/04/25 03:33
PT 19.1 Sec (11.4-14.6) H 03/02/25 16:33
INR 1.58 03/02/25 16:33
APTT 38.2 Sec (23.4-35.0) H 03/02/25 16:33
Vital Signs
Vital Signs
Temp Pulse Resp BP Pulse Ox
98 F 78 18 118/63 94
03/04/25 03:00 03/04/25 05:30 03/04/25 05:00 03/04/25 05:00 03/04/25 03:45
CT Intake/Output/Weight
03/03/25 03/03/25 03/04/25
06:59 18:59 06:59
Intake Total 1891.0 / 2425.7 204.0 / 335.6 131.6 / 335.6
Output Total 840 / 1335 1545 / 1765 220 / 1765
Balance 1051.0 / 1090.7 -1341.0 / -1429.4 -88.4 / -1429.4
SaO2: 94
Physical Exam
-
General: Awake, Oriented and AOx3
Cardiovascular: Regular rate & rhythm, No Murmurs and No Rub
Respiratory: Clear, Equal and Decreased Breath Sounds
Sternum: Stable
Incision: Clean, Dry and Intact
Extremities: Edema +1
Data Reviewed
-
Lab Results: Results Reviewed
Medications: Active Meds Reviewed
Chest X-Ray: Report Reviewed and Image Reviewed
ECG: Report Reviewed
[2025-03-04] MEDS: ROXICODONE 5 MG PO ×3 (06:45→16:43)
[2025-03-04 06:57] LABS: Glucose - Point of Care 123 mg/dl (70-99)
--- NOTE | 2025-03-04 07:40 | W.PN.INTV ---
Today's Communication / Plan
Recommendations
Off pressors and insulin gtt, transitioned to SQ
Doing well, sitting in chair
Pain control PRN
Encouraged OOB, PT/IS
Can transfer to tele if off gtts, we will sign off upon transfer
Assessment
-
Patient is a 69-year-old male with history of PAF, hypertension, severe presenting for elective cardiac surgery. He has history of severe aortic valve stenosis with moderate to severe concentric LVH. Recent echocardiogram demonstrating
preserved EF without regional wall motion abnormalities. Left heart catheterization was performed which demonstrated proximal LAD disease. Underwent SAVR, LE maze, CABG on 03/02/2025 and postoperatively transferred to CVICU for further management.
Severe aortic stenosis, CAD s/p SAVR, CABG 03/02/2025
Perioperative mechanical ventilation
Conditions present prior to admission
PAF status post cardioversion x 2, ablation x 2
Hypertension
Hyperlipidemia
BPH
CAD
Obesity
Plan
S/p AVR, CAB POD #2
Titrated off pressors per protocol
ECHO reviewed with normal function/stage IIID
PA catheter/chest tubes discontinued per primary service
Pain control
RASS goal of 0 to -1
Intubated for procedure, extubated and doing well
ABG(s) adequate
CXR prior reviewed, no acute findings, repeat with stable postop changes
Maintain supplement oxygen as needed
Prior history of pulmonary disease: none
Suspect [place], OP PSG recommended
No prior PFTs for review
Can add nebulizers if needed
Aspiration precautions
Encouraged incentive spirometry, OOB/ambulation/early mobility
Advance diet as tolerated following extubation
GI prophylaxis if indicated for mechanical ventilation >48 hours
Monitor critical I/O's
Jesus/chest tube output
Hb/platelets preoperatively stable, repeat labs pending
Can transfuse if indicated for Hb <7, plt <50 in surgical patients
DVT prophylaxis including SCDs
Insulin protocol initiated and ongoing
Transition to SQ/off as indicated per team
Diagnostic Data
Chest X-Ray: 03/25/23- No acute cardiopulmonary process.
CT Scan: TAVR 02/06/25- The liver is diffusely hypoattenuating likely secondary to steatosis. Mild prostatomegaly. The urinary bladder is mildly thickened which may represent an element of chronic outlet obstruction.
Echo: 12/13/24- Normal left ventricular size and systolic function. No regional wall motion abnormalities are seen. LV ejection fraction is 60-65% by Canela's method of discs. Moderate to severe concentric left ventricular hypertrophy. Stage III
diastolic dysfunction suggestive of restrictive filling pattern and increased filling pressures. Normal right ventricular size and function. Thickened mitral valve leaflets with mitral annular calcification, a mean
gradient of 4 mmHg consistent with mild mitral valve stenosis. Mild to moderate mitral regurgitation. Calcified, thickened aortic valve with peak and mean gradients of 66 and 39 mmHg, respectively. Estimated MAY is 1.0 cm2., using an LVOT of 2.2
cm. Moderate to severe aortic stenosis. Mild aortic regurgitation. Tricuspid valve opens normally with mild tricuspid regurgitation. Estimated pulmonary artery pressure of 35 mmHg, assuming a right atrial pressure of 3 mmHg. Proximal ascending aorta
is 4.5 cm. Compared to prior study 06/07/2024 proximal ascending aorta is now 4.5 cm previously measured at 4.2 cm.
PFT's:
Reports and relevant images were personally reviewed.
Critical Care time 31 mins -- The patient is admitted for acute critical illness for the treatment of vital organ failure and/or prevention of further life-threatening conditions. Total care includes time spent in review of history, physical exam,
medications, hemodynamic/ventilator parameters, laboratory data, imaging and discussion with house staff, pharmacy, respiratory therapy, dye range operator, and nursing.
Subjective Dataa
Subjective Data
Date of Service:
Date of Service: March 04, 2025
Chief Complaint: It Sales Executive Follow Up
Subjective:
Doing well, pain better today
Chest tubes removed
Family at bedside
Sitting in chair
Objective Data
Data Reviewed
Vital Signs / I&O / Oxygen:
Vital Signs
Temp Pulse Resp BP Pulse Ox
98 F 79 18 121/73 94
03/04/25 03:00 03/04/25 06:45 03/04/25 05:00 03/04/25 06:00 03/04/25 06:09
Intake and Output
03/03/25 03/04/25 03/05/25
06:59 06:59 06:59
Intake Total 2337.2 / 2425.7 378.0 / 378.0
Output Total 1270 / 1335 1785 / 1785
Balance 1067.2 / 1090.7 -1407.0 / -1407.0
SaO2 [SIMV] 100
SaO2 94
Nasal Cannula flow liters per 2
minute
Physical Exam
General: Comfortable, Pain and Other (NAD)
HEENT: Normocephalic, Anicteric and Moist Mucous Membranes
Cardiovascular: S1-S2 and Regular Rhythm
Respiratory: Clear and Non-Labored Respirations
GI: Soft, Non Distended and Non Tender
Neurology: Awake, Alert, Oriented and No Motor Deficits
Skin: Warm, Dry and Good Color
Labs/Micro/Reports
Lab Data
03/04/25 03:33
03/04/25 03:33
Microbiology
02/28/25 12:15 Nose MRSA Screen - Final
No Methicillin Resistant Staphylococcus aureus isolated.
--- NOTE | 2025-03-04 08:00 | PTCARENOTE ---
pt received from previous RN, oriented, OOB in chair. SR on the monitor, HR 70-80s. +rub. V wire in place, pacer box off. SBP 100-110s. palpable pulses. pt on RA, lungs diminished. IS encouraged, 1250ml. CTx3, no air leak or crepitus noted. pt
abdomen s/n, denies n/v. +BS. voids. ambulates w/ stand by. sternal incision [employer], approximated. chest tube site c/d/i. RIJ cordmiladis rm, PA aware. PIV. insulin gtt running as ordered. see worklist for VS, I&O, and assessment.
[2025-03-04] MEDS: BACTROBAN 2% OINTMENT 1 APPLIC NASAL ×2 (08:47→19:58)
[2025-03-04] MEDS: LOPRESSOR 12.5 MG PO ×2 (08:47→19:58)
[2025-03-04] MEDS: PLAVIX 75 MG PO (08:47)
[2025-03-04] MEDS: LOW STRENGTH ASPIRIN 81 MG PO (08:47)
[2025-03-04] MEDS: SENOKOT-S 1 TABLET PO (08:47)
[2025-03-04] MEDS: PROTONIX 40 MG PO (08:48)
[2025-03-04] MEDS: VITAMIN D3 (cholecalciferol) 50 MCG PO ×2 (08:48→19:58)
[2025-03-04] MEDS: MAGNESIUM OXIDE 500 MG PO ×2 (08:48→19:57)
[2025-03-04] MEDS: LIDOCAINE 4% PATCH 1 PATCH TOPICAL (08:48)
[2025-03-04] MEDS: TIKOSYN 250 MCG PO ×2 (08:48→19:57)
[2025-03-04] MEDS: NEURONTIN 100 MG PO ×3 (08:48→21:38)
[2025-03-04 08:55] LABS: Glucose - Point of Care 122 mg/dl (70-99)
[2025-03-04] MEDS: NOVOLOG FLEXPEN SC (09:25)
--- NOTE | 2025-03-04 09:36 | W.PN.CARDCBS ---
Today's Communication / Plan
-
Routine postoperative care, supportive care; out of bed, incentive spirometer
Continue Tikosyn, monitor on telemetry
Resume BP medications when able
Impression / Plan
-
Primary Embroiderer Hand: Dr. Brown
Assessment:
Status post CABG x 2 in situ RODRIGUEZ to LAD, AO to RSVG to diagonal, SEBASTIAN maze, SEBASTIAN clip, iatrogenic ASD closure, surgical bioprosthetic AVR #27 mm 03/02/2025
Severe
Mod to severe LVH
prox LAD disease by cath 01/24/25
Paroxysmal atrial fibrillation s/p PVI and flutter ablation 2016, [place] posterior wall isolation 2018
Chronic tikosyn therapy
Chronic OAC with eliquis
HTN
Echo 12/13/2024: EF 60 to 65%, moderate to severe concentric LVH, stage III diastolic dysfunction, MAC, mild to moderate AR, moderate to severe with peak/mean gradient 66/39 mmHg, mild AR, MAY 1.0 cm�, mild TR, PAP 35 mmHg, proximal ascending
aorta 4.5 cm
Plan:
-Status post CABG x 2 in situ RODRIGUEZ to LAD, AO to RSVG to diagonal, SEBASTIAN maze, SEBASTIAN clip, iatrogenic ASD closure, surgical bioprosthetic AVR #27 mm 03/02/2025
- Extubated 03/02/2025
- Off vasopressors
-EKG SR without acute ST abnormalities noted. on tikosyn preop, would continue post op if ok per CT surgery; QT/QTc 414/434 ms this a.m. which is stable, no significant change in QT/QTc, okay to continue Tikosyn
-hgb 13. was on asa, eliquis pre op; resume when able
-continue post op care
-pre op was on norvasc 5mg daily, toprol 25mg BID, lasix 40mg daily; resume when able pending blood pressure
Progress Note - Embroiderer Hand
Subjective
Date of Service: March 04, 2025
Patient seen and examined. No acute events overnight. Patient resting comfortably in chair. Patient notes some fatigue and incisional discomfort. No other complaints at this time
Objective
Labs:
03/04/25 03:33
03/04/25 03:33
Labs
Hgb 11.2 g/dL (13.0-18.0) L 03/04/25 03:33
Hct 32.7 % (39.0-52.0) L 03/04/25 03:33
Plt Count 132 10^3/uL (130-400) D 03/04/25 03:33
PT 19.1 Sec (11.4-14.6) H 03/02/25 16:33
INR 1.58 03/02/25 16:33
APTT 38.2 Sec (23.4-35.0) H 03/02/25 16:33
Sodium 134 mmol/L (135-145) L 03/04/25 03:33
Potassium 4.3 mmol/L (3.5-5.1) 03/04/25 03:33
BUN 23 mg/dl (9-20) H 03/04/25 03:33
Creatinine 0.8 mg/dL (0.7-1.3) 03/04/25 03:33
Glucose 95 mg/dl (70-99) 03/04/25 03:33
Vital Signs and I&O:
Vital Signs
Temp Pulse Resp BP Pulse Ox
98.6 F 77 16 113/71 95
03/04/25 08:00 03/04/25 08:15 03/04/25 08:00 03/04/25 08:00 03/04/25 08:00
Vital Signs
Temp Pulse Resp BP Pulse Ox
98.6 F 77 16 113/71 95
03/04/25 08:00 03/04/25 08:15 03/04/25 08:00 03/04/25 08:00 03/04/25 08:00
Intake & Output
03/02/25 03/03/25 03/04/25 03/05/25
06:59 06:59 06:59 06:59
Intake Total 2337.2 / 2425.7 378.0 / 378.0
Output Total 1270 / 1335 1785 / 1785
Balance 1067.2 / 1090.7 -1407.0 / -1407.0 - / 12
Physical Exam
Physical Exam
GEN: No distress, ANO x 3, nasal cannula
HEENT: supple, mmm
LUNGS: Poor inspiratory effort, CTA, no wheezes/rales
CV: Reg, S1/S2, no murmur
EXT: No cyanosis, clubbing, edema
NEURO: Gross non-focal
SKIN: Warm, pink, dry. No rash. Sternotomy incision clean dry and intact. Chest tubes in place.
telemetry shows sinus rhythm
--- NOTE | 2025-03-04 10:42 | PTCARENOTE ---
insulin gtt dc'd per PA. pt placed back to bed, CTx3 dc'd as ordered, dressing c/d/i. V wire insulated. pt ambulated to bathroom, +small BM. OOB in chair.
--- NOTE | 2025-03-04 12:21 | PTCARENOTE ---
pt VSS, no changes in assessment. OOB in chair for lunch. pt c/o sternal pain, received PRN Oxycodone 5mg PO.
[2025-03-04 12:50] LABS: Glucose - Point of Care 185 mg/dl (70-99)
[2025-03-04] MEDS: NOVOLOG FLEXPEN-MODERATE RESISTANCE 1 UNITS SC (12:50)
[2025-03-04] MEDS: NSS IV (13:55)
[2025-03-04] MEDS: FERRLECIT 110 MG IV (14:42)
--- NOTE | 2025-03-04 16:10 | PTCARENOTE ---
pt VSS, RIJ cordis does not flush, PA aware. pt placed back to bed. new LAC PIV placed, Cordis dc'd as ordered, dressing c/d/i. pt ambulated into hallway. chest PT performed, IS encouraged. +BM. OOB in chair for dinner.
[2025-03-04 17:35] LABS: Glucose - Point of Care 133 mg/dl (70-99)
[2025-03-04] MEDS: NOVOLOG FLEXPEN-MODERATE RESISTANCE SC (17:35)
[2025-03-04] MEDS: SENOKOT-S PO (19:58)
[2025-03-04] MEDS: REMOVE LIDOCAINE PATCH 1 PATCH REMOVE (19:58)
--- NOTE | 2025-03-04 20:00 | PTCARENOTE ---
assumed care of pt from previous RN. pt A&Ox4, resting in chair at time of assessment. SR on tele-monitor. temp epicardial v-wires insulated. POX 95% on RA. abd s/n, round, obese, +BS. voiding clear, yellow colored urine. all surgical sites stable,
CDI. PIV x2 intact. see worklist for complete nursing assessment, interventions, VS, and I&Os.
[2025-03-04] MEDS: LIPITOR 20 MG PO (21:38)
[2025-03-04 21:43] LABS: Glucose - Point of Care 137 mg/dl (70-99)
[2025-03-05] VITALS (11 sets, daily range): BP systolic 108–129; BP diastolic 59–71; PULSE 84; O2SAT 97–100; BMI 39.0
--- NOTE | 2025-03-05 00:15 | PTCARENOTE ---
assessment remains unchanged. VSS.
--- NOTE | 2025-03-05 04:15 | PTCARENOTE ---
no acute changes. VSS. AM labs collected and sent.
[2025-03-05 04:46] LABS: Hematocrit 29.1 % (39.0-52.0); Hemoglobin 9.9 g/dL (13.0-18.0); Mean Corp Hgb Conc. 34.0 g/dL (33.0-37.0); Mean Corpuscular Volume 89.3 fL (80.0-94.0); Platelet Count 111 10^3/uL (130-400); Red Cell Dist. Width 14.3 % (11.5-14.5)
[2025-03-05 05:05] LABS: Blood Urea Nitrogen 20 mg/dl (9-20); Calcium 8.7 mg/dl (8.4-10.2); Carbon Dioxide 31 mmol/L (22-30); Chloride 98 mmol/L (98-107); Estimated Creatinine Clearance 105 ml/min; Glucose 127 mg/dl (70-99); Magnesium 2.1 mg/dl (1.6-2.3); Potassium 4.3 mmol/L (3.5-5.1); Sodium 131 mmol/L (135-145); eGFR > 60.00
--- NOTE | 2025-03-05 05:26 | W.PN.CT ---
Today's Communication / Plan
-
Plan:
- No major events overnight
- Had brief < 30 sec SVT 140's this AM during sleep, asymptomatic
- On BB and Tikosyn
- Will start Eliquis today
- D/C cordis
- Cont. current meds (ASA, Plavix, atorvastatin, Tikosyn, metoprolol, PPI)
- Encourage use of IS
- OOB into chair
- Likely home tomorrow
Assessment / Plan
-
Severe , MVCAD, Afib s/p CABG x2 (In situ RODRIGUEZ to LAD, Ao to RSVG to diagonal), MAZE, SEBASTIAN clip (35 mm), iatrogenic ASD closure, bio AVR (27 mm Gusman inspiris resilia) on 03/[address] Suárez POD #3
post op NEETU: 60% LVEF, no RWMA, no prosthetic PVL or AI. MG 8 while CI 2.7
Severe
Mod to severe LVH
prox LAD disease by cath 01/24/25
Paroxysmal atrial fibrillation s/p PVI and flutter ablation 2017, LA posterior wall isolation 2018
Chronic tikosyn therapy
Chronic OAC with eliquis
HTN
Acute post op respiratory insufficiency
Acute post op anemia (expected)
Acute post op hematuria, resolved
Acute post op coagulopathy
Discussed patient care with: Cardiology, Nursing, Respiratory Therapy, Pharmacy and Care Team
Subjective
Procedure
s/p CABG x2 (In situ RODRIGUEZ to LAD, Ao to RSVG to diagonal), MAZE, SEBASTIAN clip (35 mm), iatrogenic ASD closure, bio AVR (27 mm Gusman inspiris resilia) on 03/[address] Suárez
-
Date of Service: March 05, 2025
C/O mild incisional pain, otherwise feels well
Objective Data
-
Lab Results
03/05/25 04:16
03/05/25 04:16
PT 19.1 Sec (11.4-14.6) H 03/02/25 16:33
INR 1.58 03/02/25 16:33
APTT 38.2 Sec (23.4-35.0) H 03/02/25 16:33
Vital Signs
Vital Signs
Temp Pulse Resp BP Pulse Ox
99 F 84 16 108/65 97
03/05/25 00:10 03/05/25 05:00 03/05/25 04:15 03/05/25 04:12 03/05/25 04:15
CT Intake/Output/Weight
03/04/25 03/04/25 03/05/25
06:59 18:59 06:59
Intake Total 174.0 / 378.0 1088 / 1088
Output Total 240 / 1785 430 / 1730 1300 / 1730
Balance -66.0 / -1407.0 658 / -642 -1300 / -642
SaO2: 97 (RA)
Physical Exam
-
General: Awake, Oriented and AOx3
Cardiovascular: Regular rate & rhythm, No Murmurs, No Rub and No Gallop
Respiratory: Decreased Breath Sounds (at bases)
Sternum: Stable
Incision: Clean, Dry, Intact and Dressing Intact
Extremities: Other (+trace edema)
Data Reviewed
-
Lab Results: Results Reviewed
Medications: Active Meds Reviewed
Chest X-Ray: Report Reviewed and Image Reviewed
ECG: Report Reviewed and Image Reviewed
[2025-03-05] MEDS: TYLENOL 1000 MG PO ×3 (06:31→21:36)
[2025-03-05 08:00] LABS: Glucose - Point of Care 152 mg/dl (70-99)
--- NOTE | 2025-03-05 08:00 | PTCARENOTE ---
assumed care of patient @ 0700. received pt sitting in chair, Aox3. VSS on RA. SR on tele. Lungs clear, diminished on room air. BS normoactive, tolearting diet. Voiding clear yellow urine in urinal or toilet. MSI CLEANER AND PRESSER, R leg insc CLEANER AND PRESSER. PIV intact.
resting comfortably in chair with call callahan within reach.
[2025-03-05] MEDS: TIKOSYN 250 MCG PO ×2 (08:28→20:59)
[2025-03-05] MEDS: PROTONIX 40 MG PO (08:29)
[2025-03-05] MEDS: NEURONTIN 100 MG PO ×3 (08:29→21:36)
[2025-03-05] MEDS: LOPRESSOR 12.5 MG PO ×2 (08:29→21:00)
[2025-03-05] MEDS: VITAMIN D3 (cholecalciferol) 50 MCG PO ×2 (08:29→21:00)
[2025-03-05] MEDS: SENOKOT-S 1 TABLET PO (08:29)
[2025-03-05] MEDS: MAGNESIUM OXIDE 500 MG PO ×2 (08:29→21:00)
[2025-03-05] MEDS: LOW STRENGTH ASPIRIN 81 MG PO (08:30)
[2025-03-05] MEDS: ELIQUIS 5 MG PO ×2 (08:30→20:59)
[2025-03-05] MEDS: BACTROBAN 2% OINTMENT 1 APPLIC NASAL ×2 (08:31→20:59)
[2025-03-05] MEDS: NOVOLOG FLEXPEN-MODERATE RESISTANCE 1 UNITS SC (08:31)
[2025-03-05] MEDS: LIDOCAINE 4% PATCH TOPICAL (08:32)
[2025-03-05] MEDS: PLAVIX PO (08:41)
--- NOTE | 2025-03-05 09:31 | W.PN.UPDATE ---
Update Note
Progress Note Update
No pacing required since surgery. 1 bipolar ventricular wire clipped at skin level.
--- NOTE | 2025-03-05 09:59 | PTCARENOTE ---
wires cut by CTBOUBACAR. BP stable
--- NOTE | 2025-03-05 10:37 | W.PN.CARDCBS ---
Today's Communication / Plan
-
stable cardiology status
Impression / Plan
-
Primary Waste Water Operator: Dr. Brown
Assessment:
Status post CABG x 2 in situ RODRIGUEZ to LAD, AO to RSVG to diagonal, SEBASTIAN maze, SEBASTIAN clip, iatrogenic ASD closure, surgical bioprosthetic AVR #27 mm 03/02/2025
Severe
Mod to severe LVH
prox LAD disease by cath 01/24/25
Paroxysmal atrial fibrillation s/p PVI and flutter ablation 2016, LA posterior wall isolation 2018
Chronic tikosyn therapy
Chronic OAC with eliquis
HTN
Echo 12/13/2024: EF 60 to 65%, moderate to severe concentric LVH, stage III diastolic dysfunction, MAC, mild to moderate AR, moderate to severe with peak/mean gradient 66/39 mmHg, mild AR, MAY 1.0 cm�, mild TR, PAP 35 mmHg, proximal ascending
aorta 4.5 cm
Plan:
stable cardiology status
remains in sr
d/w ct surgery PA
Progress Note - Waste Water Operator
Subjective
Date of Service: March 05, 2025
no cp or sob
Objective
Labs:
03/05/25 04:16
03/05/25 04:16
Labs
Hgb 9.9 g/dL (13.0-18.0) L 03/05/25 04:16
Hct 29.1 % (39.0-52.0) L 03/05/25 04:16
Plt Count 111 10^3/uL (130-400) L 03/05/25 04:16
PT 19.1 Sec (11.4-14.6) H 03/02/25 16:33
INR 1.58 03/02/25 16:33
APTT 38.2 Sec (23.4-35.0) H 03/02/25 16:33
Sodium 131 mmol/L (135-145) L 03/05/25 04:16
Potassium 4.3 mmol/L (3.5-5.1) 03/05/25 04:16
BUN 20 mg/dl (9-20) 03/05/25 04:16
Creatinine 0.8 mg/dL (0.7-1.3) 03/05/25 04:16
Glucose 127 mg/dl (70-99) H 03/05/25 04:16
Vital Signs and I&O:
Vital Signs
Temp Pulse Resp BP Pulse Ox
98.6 F 81 16 115/67 96
03/05/25 08:00 03/05/25 08:10 03/05/25 08:00 03/05/25 08:10 03/05/25 08:00
Vital Signs
Temp Pulse Resp BP Pulse Ox
98.6 F 81 16 115 96
03/05/25 08:00 03/05/25 08:10 03/05/25 08:00 03/05/25 08:10 03/05/25 08:00
Intake & Output
03/03/25 03/04/25 03/05/25 03/06/25
06:59 06:59 06:59 06:59
Intake Total 2337.2 / 2425.7 378.0 / 378.0 1088 / 1088 240 / 240
Output Total 1270 / 1335 1785 / 1785 2029 / 2029
Balance 1067.2 / 1090.7 -1407.0 / -1407.0 -942 / -942 240 / 240
Physical Exam
Physical Exam
General: Well developed, well nourished in NAD.
Neck: Supple, no JVD, HJR, carotids +2 B/L, no bruits bilaterally.
Heart: Non displaced PMI, RRR, no murmurs, No S3, S4, no rubs.
Lungs: scattered rhonchi
sternal dressings noted
Extremities: No clubbing, cyanosis or edema bilaterally.
Neuro: Grossly nonfocal, awake, alert and oriented x3.
[2025-03-05 12:34] LABS: Glucose - Point of Care 132 mg/dl (70-99)
--- NOTE | 2025-03-05 12:45 | CM ---
Reviewed chart. Met with and Mrs. Mccullough to review discharge plans. He states he is feeling well and maybe able to go home soon. He states prior to admission she resides with his spouse in a one story home with a basement. He states he has five
to six steps to get into the home. He states he has a full flight of steps to get to the finished basement. He states prior to admission he was independent with ambulation and adls. He states he has a CPAP Machine at home and no other DME in the
home. He states he has a prescription plan with [facility]. He uses [facility] for his maintenance medications expect for his Eliquis which he gets from mail order at [facility]. He states he has been ambulating in the hallway. We reviewed a home
visit by the Transitional Care Nurse. He states he resides in the [facility]. He is agreeable the home visit. Wi;ll check with the Transitional Care Nurse if she will go to his home address. Medical work-up in progress. The
discharge plan is to return home with his spouse and a home visit by the Transitional Care Nurse when medically stable.
[2025-03-05] MEDS: NOVOLOG FLEXPEN-MODERATE RESISTANCE SC ×2 (13:26→17:16)
[2025-03-05] MEDS: FERRLECIT 110 MG IV (14:25)
[2025-03-05 16:35] LABS: Glucose - Point of Care 130 mg/dl (70-99)
[2025-03-05] MEDS: NSS IV (17:16)
[2025-03-05] MEDS: SENOKOT-S PO (21:00)
[2025-03-05] MEDS: ROXICODONE 5 MG PO (21:00)
--- NOTE | 2025-03-05 21:00 | PTCARENOTE ---
Patient received OOB in chair talking with visitor. Patient A+A+Ox3. No neurological deficits noted. Patient ambulated to bathroom with minimal assistance. Sternal precautions. No c/o headache, dizziness or lightheadedness. Patient assisted to
bed. Mild YAO. Room air. SpO2 95%. CPAP HS. Sinus Rhythm with BBC. Heart rate 80's. Blood pressure 119/59 (78). Patient with no c/o chest pain, pressure or discomfort. Abdomen soft, round, nontender. Normoactive bowel sounds. No BM. No
c/o nausea. No vomiting. Voiding without difficulty. Positive, palpable pulses. Sternal incision - Intact - Open to air. Chest tube dressing. Right leg incision intact - Open to air. Patient with no c/o back or flank pain. Assessment as
documented.
[2025-03-05] MEDS: REMOVE LIDOCAINE PATCH REMOVE (21:01)
[2025-03-05] MEDS: LIPITOR 20 MG PO (21:36)
[2025-03-06] VITALS (14 sets, daily range): BP systolic 96–117; BP diastolic 55–68; PULSE 80; O2SAT 98–99; BMI 38.9
--- NOTE | 2025-03-06 00:40 | PTCARENOTE ---
Patient resting in bed. Home CPAP HS. SpO2 95%. Voided 400 ml yellow urine. Physician's Bookkeeper for CT Surgery, Mateus Rudd PA-C, made aware of patient being ordered and given Lipitor 20 mg PO. Patient expressed being concerned with
getting potential muscle spasms with use of Lipitor. JONATHAN discontinued Lipitor and ordered Zetia 10 mg PO HS. Patient made aware of medication change. No further changes from previous assessment.
--- NOTE | 2025-03-06 04:29 | W.PN.CT ---
Today's Communication / Plan
-
Plan:
- No major events overnight
- No further SVTs
- On BB and Tikosyn
- Resumed Eliquis yesterday
- Will replete K of 3.7
- F/u 2-view cxr
- D/C'd Lipitor d/t c/o muscle spasms, switched to Zetia
- Cont. current meds (ASA, Plavix, Zetia, Tikosyn, metoprolol, PPI)
- Encourage use of IS
- OOB into chair
- D/C home
Assessment / Plan
-
Severe , MVCAD, Afib s/p CABG x2 (In situ RODRIGUEZ to LAD, Ao to RSVG to diagonal), MAZE, SEBASTIAN clip (35 mm), iatrogenic ASD closure, bio AVR (27 mm Gusman inspiris resilia) on 03/[address] Suárez POD #4
post op NEETU: 60% LVEF, no RWMA, no prosthetic PVL or AI. MG 8 while CI 2.7
Severe
Mod to severe LVH
prox LAD disease by cath 01/24/25
Paroxysmal atrial fibrillation s/p PVI and flutter ablation 2016, LA posterior wall isolation 2018
Chronic tikosyn therapy
Chronic OAC with eliquis
HTN
Acute post op respiratory insufficiency
Acute post op anemia (expected)
Acute post op hematuria, resolved
Acute post op coagulopathy
Acute postop hyponatremia
Discussed patient care with: Cardiology, Nursing, Respiratory Therapy, Pharmacy and Care Team
Subjective
Procedure
s/p CABG x2 (In situ RODRIGUEZ to LAD, Ao to RSVG to diagonal), MAZE, SEBASTIAN clip (35 mm), iatrogenic ASD closure, bio AVR (27 mm Gusman inspiris resilia) on 03/[address] Suárez
-
Date of Service: March 06, 2025
Pt c/o mild incisional pain, otherwise feels well
Objective Data
-
PT 19.1 Sec (11.4-14.6) H 03/02/25 16:33
INR 1.58 03/02/25 16:33
APTT 38.2 Sec (23.4-35.0) H 03/02/25 16:33
Vital Signs
Vital Signs
Temp Pulse Resp BP Pulse Ox
98.7 F 74 16 113/64 95
03/06/25 00:35 03/06/25 02:00 03/06/25 00:35 03/06/25 00:35 03/06/25 00:35
CT Intake/Output/Weight
03/05/25 03/05/25 03/06/25
06:59 18:59 06:59
Intake Total 720 / 960 240 / 960
Output Total 1600 / 2030 550 / 1350 800 / 1350
Balance -1600 / -942 170 / -390 -560 / -390
SaO2: 95 (RA)
Physical Exam
-
General: Awake, Oriented and AOx3
Cardiovascular: Regular rate & rhythm, No Murmurs, No Rub and No Gallop
Respiratory: Decreased Breath Sounds (at bases, otherwise clear )
Sternum: Stable
Incision: Clean, Dry, Intact and Dressing Intact
Extremities: Other (+trace edema)
Data Reviewed
-
Lab Results: Results Reviewed
Medications: Active Meds Reviewed
Chest X-Ray: Report Reviewed and Image Reviewed
ECG: Report Reviewed and Image Reviewed
[2025-03-06] MEDS: TYLENOL 1000 MG PO ×2 (04:53→13:03)
[2025-03-06 05:05] LABS: Hematocrit 26.6 % (39.0-52.0); Hemoglobin 9.1 g/dL (13.0-18.0); Mean Corp Hgb Conc. 34.2 g/dL (33.0-37.0); Mean Corpuscular Volume 89.0 fL (80.0-94.0); Platelet Count 120 10^3/uL (130-400); Red Cell Dist. Width 14.5 % (11.5-14.5)
[2025-03-06 05:28] LABS: Blood Urea Nitrogen 16 mg/dl (9-20); Calcium 8.0 mg/dl (8.4-10.2); Carbon Dioxide 30 mmol/L (22-30); Chloride 102 mmol/L (98-107); Estimated Creatinine Clearance 120 ml/min; Glucose 109 mg/dl (70-99); Magnesium 2.0 mg/dl (1.6-2.3); Potassium 3.7 mmol/L (3.5-5.1); Sodium 134 mmol/L (135-145); eGFR > 60.00
--- NOTE | 2025-03-06 06:30 | PTCARENOTE ---
Patient A+A+Ox3. No neurological deficits noted. Patient with no c/o headache, dizziness or lightheadedness. AM lab work collected and sent. K 3.7 40 mEq KCL PO given. Patient OOB to chair. Standing scale weight 115.9 kg.
Assessment/Interventions as documented.
[2025-03-06] MEDS: KCL 40 MEQ PO (06:39)
[2025-03-06 07:31] LABS: Glucose - Point of Care 116 mg/dl (70-99)
[2025-03-06] MEDS: LIDOCAINE 4% PATCH TOPICAL (07:32)
[2025-03-06] MEDS: NOVOLOG FLEXPEN-MODERATE RESISTANCE SC (07:32)
[2025-03-06] MEDS: MAGNESIUM OXIDE 500 MG PO (08:04)
[2025-03-06] MEDS: BACTROBAN 2% OINTMENT 1 APPLIC NASAL (08:04)
[2025-03-06] MEDS: VITAMIN D3 (cholecalciferol) 50 MCG PO (08:04)
[2025-03-06] MEDS: LOW STRENGTH ASPIRIN 81 MG PO (08:04)
[2025-03-06] MEDS: SENOKOT-S PO (08:05)
[2025-03-06] MEDS: TIKOSYN 250 MCG PO (08:05)
[2025-03-06] MEDS: LOPRESSOR 12.5 MG PO (08:05)
[2025-03-06] MEDS: ELIQUIS 5 MG PO (08:05)
[2025-03-06] MEDS: PROTONIX 40 MG PO (08:05)
[2025-03-06] MEDS: NEURONTIN 100 MG PO (08:05)
--- NOTE | 2025-03-06 08:08 | PTCARENOTE ---
Received pt from warehouse shift supervisor RN; pt AAOX3 and resting comfortably in chair; NSR BBB on monitor and VSS; PIV x2 patent; lungs diminished; positive bowel sounds; pt voiding yellow urine; palpable pulses throughout; + generalized edema noted; all
surgical sites C/D/I; see nursing documentation for further details.
--- NOTE | 2025-03-06 09:06 | W.DCSUMMARY ---
Discharge Summary
Discharge Data
Date of Admission: 03/02/25
Date of Discharge: 03/06/25
-
Pending Results: No
Hospital Course
Primary care physician: Niko Moseley
Outpatient solidworks designer: Juaquin Brown
Inpatient consultants: [facility] Cardiology, pulmonary microfilm duplicating unit supervisor
Procedures:
1. Aortic valve replacement, encompass maze, primary ASD closure, CABG x 2
Primary Diagnosis:
1. Severe aortic valve stenosis
Secondary Diagnoses:
1. Paroxysmal atrial fibrillation on Tikosyn and chronic anticoagulation, s/p PVI and flutter ablation 2016, LA posterior wall isolation 2018
2. Hypertension
3. Hyperlipidemia
4. BPH
5. CAD involving the proximal LAD and diagonal
6. Iatrogenic atrial septal defect from prior ablation
Acute post op respiratory insufficiency
Acute post op anemia (expected)
Acute post op hematuria, resolved
Acute post op coagulopathy
Acute postop hyponatremia
HPI: 69-year-old male was electively admitted on 03/02/2025 for AVR, CABG, ASD closure, maze, and clip due to aortic stenosis, coronary artery disease, and PAF.
Hospital course: Patient was taken to the operating room and underwent an AVR #27 mm Gusman Inspiris tissue valve, encompass Maze, primary closure of ASD, and CABG x 2 with RODRIGUEZ�LAD and SVG�diagonal by Dr. Osmany Suárez. For further details, please
see operative note. Postprocedure NEETU reported an EF of 60%, AV gradients of 15/8 mmHg, trace MR, no flow across the atrial septum or passive left atrial appendage clip. Patient required no intraoperative blood products and returned to CVICU on
Levophed, insulin, Precedex. Patient was extubated the day of surgery and weaned off Levophed. Tikosyn was resumed on postoperative day #1. On postoperative day #2, the insulin infusion was discontinued and patient transferred to telemetry status.
Chest tubes were discontinued. On postoperative day #3, Eliquis was added along with aspirin. Ventricular wires were clipped to skin level and right IJ cordis removed. On postoperative day #4, a two-view x-ray reported minimal bilateral pleural
effusions and mild subsegmental atelectasis in the basilar segments of the lower lobes. Patient ambulated with cardiac rehab performed steps. Right thigh SVG harvest site with ecchymosis, no erythema or drainage. He was deemed stable for discharge
home. He will be followed by transitional nurse team
Home medication changes:
Protonix while on Eliquis
Zetia in place of a statin due to statin intolerance
Stop Norvasc and Lasix as BP low normal range
Toprol 25mg changed to metoprolol 12.5mg BID
Discharge Plan
-
Patient Disposition: Home (Routine Discharge)
Discharge Diagnosis/Procedures: aortic valve replacement (Tissue valve0, closure atrial septal defect, CABG x 2, MAZE, left atrial appendage clip (03/02/25)- Dr. Suárez
Condition: Good
Diet: Low Cholesterol and Low Sodium
Activity: No strenuous activity
Driving Restrictions: Not until seen by your Dr
Bathing Restrictions: OK to Shower
Other Services: Cardiac Rehab
Specialty Instructions: Weigh Daily- Call MD for wt gain/loss 3 lbs overnight/5 lbs in 1 week
Referrals:
CT Transitional Care Nurse [Outside]
Referral Note:
The Cardiothoracic Transitional Care Nurse will call you to set up a visit in 1-2 days.
[facility] [Outside] - 04/12/25 11:30 am
Referral Note: Cardiac Rehab Orientation and� First Exercise appointment is on 04/12 at 11:30 am.____
The Cardiac Rehab gym is located on the first floor of the [facility].
Niko Moseley MD [Family Provider, Family Practice]
Renata Nugent PA-C [Specified Professional Personl, Cardiology] - 04/10/25 12:40 pm
Osmany Suárez MD [Active, Cardiac Surgery] - 04/04/25 1:00 pm
Prescriptions:
New
acetaminophen 325 mg Tablet
650 mg PO Q4HPRN PRN (Reason: mild pain,headache,temp >101F ) Qty: 0 0RF
pantoprazole 40 mg Tablet,Delayed Release (Dr/Ec)
40 mg PO DAILY Qty: 30 2RF
gabapentin 100 mg Capsule
100 mg PO TID Qty: 30 0RF
oxycodone 5 mg Tablet
5 mg PO Q4HPRN PRN (Reason: severe pain) Qty: 10 0RF
ezetimibe 10 mg Tablet
10 mg PO HS Qty: 30 2RF
cyclobenzaprine 10 mg Tablet
5 mg PO Q8HPRN PRN (Reason: muscle spasm) Qty: 10 0RF
metoprolol tartrate 25 mg Tablet
12.5 mg PO Q12 Qty: 60 2RF
Continued
Eliquis 5 MG tablet
5 mg PO BID
multivitamin Tablet
1 tab PO DAILY
cholecalciferol (vitamin D3) [Vitamin D3] 50 mcg (2,000 unit) Capsule
50 mcg PO BID
dofetilide 250 MCG capsule
250 mcg PO Q12
aspirin 81 mg tablet,delayed release (DR/EC)
81 mg PO DAILY
Discontinued
amlodipine [Norvasc] 5 MG tablet
5 mg PO DAILY
furosemide [Lasix] 40 mg tablet
40 mg PO DAILY
metoprolol succinate 25 MG tablet extended release 24 hr
25 mg PO BID
Discharge Orders:
Discharge Patient (As Directed); Ordered 03/06/25
Ordered By: Amy Rodriguez
Care Plan Goals
Care Plan Goals:
Problem: Readiness for enhanced knowledge related to diagnosis and treatment plan
Goal: Understand your diagnosis and treatment plan needs, including medications if applicable.
Instructions: Know your diagnosis, underlying causes and treatment plan options, including medications if applicable. Consult with your health care team to learn about your diagnosis and treatment plan, including medications if applicable.
Discharge Date and Time
Print Language: AZERI
--- NOTE | 2025-03-06 09:35 | CM ---
Reviewed chart. Met with Mr. Mccullough to review discharge plans. He states he is feeling tired today. We reviewed that the Transitional Care Nurse will see him when he goes home. He states his spouse will be home to assist in his care if needed.
Prior to admission he resides with his spouse in a [facility] home with a basement. He has a full lfioght of steps to get to the finished basement. Prior to admission he was independent with ambulation and adls. He has a CPAP Machine at home and no
other DME. He has a prescription plan with [facility]. Medical work-up in progress. The discharge plan is to return home with his spouse and a home visit by the Transitional Care Nurse when medically stable.
[2025-03-06 11:29] LABS: Glucose - Point of Care 187 mg/dl (70-99)
--- NOTE | 2025-03-06 12:01 | PN.CDI ---
CDI
- -
CDI:
Physician Documentation Request
Admit Date: 03/02/25 08:14
Dear Doctor Kamini,
Patient is s/p CABG x 2, MAZE, SEBASTIAN clip, iatrogenic ASD closure, AVR.
Progress notes states 'Acute post op anemia (expected)
Please provide further clarification of acute post op anemia:
Acute blood loss anemia
Other please specify
Use of terms such as suspected, likely, concern for, or probable (associated with a specific diagnosis that is being evaluated, monitored, or treated as if it exists) are acceptable and can be coded in the inpatient setting, when documented at the
time of discharge.
Thank you,
Manju Flaherty RN, BSN
CDI Specialist
tiger text
Please use your independent medical judgment in providing your response.
[2025-03-06] MEDS: NOVOLOG FLEXPEN-MODERATE RESISTANCE 1 UNITS SC (13:03)
[2025-03-06] MEDS: NSS IV (13:04)
--- NOTE | 2025-03-06 14:25 | PTCARENOTE ---
IV lines and tele monitor removed. Pt tolerated shower. Discharge instructions, follow up appointments and medication list reviewed w the pt and his , questions encouraged.
--- NOTE | 2025-03-06 14:48 | W.PN.CARDCBS ---
Today's Communication / Plan
-
Stable cardiology status for discharge
Impression / Plan
-
Primary Die Inspector: Dr. Brown
Assessment:
Status post CABG x 2 in situ RODRIGUEZ to LAD, AO to RSVG to diagonal, SEBASTIAN maze, SEBASTIAN clip, iatrogenic ASD closure, surgical bioprosthetic AVR #27 mm 03/02/2025
Severe
Mod to severe LVH
prox LAD disease by cath 01/24/25
Paroxysmal atrial fibrillation s/p PVI and flutter ablation 2016, LA posterior wall isolation 2018
Chronic tikosyn therapy
Chronic OAC with eliquis
HTN
Echo 12/13/2024: EF 60 to 65%, moderate to severe concentric LVH, stage III diastolic dysfunction, MAC, mild to moderate AR, moderate to severe with peak/mean gradient 66/39 mmHg, mild AR, MAY 1.0 cm�, mild TR, PAP 35 mmHg, proximal ascending
aorta 4.5 cm
Plan:
Stable cardiology status for discharge
d/w ct surgery
Progress Note - Die Inspector
Subjective
Date of Service: March 06, 2025
No complaints
Objective
Labs:
03/06/25 04:43
03/06/25 04:43
Labs
Hgb 9.1 g/dL (13.0-18.0) L 03/06/25 04:43
Hct 26.6 % (39.0-52.0) L 03/06/25 04:43
Plt Count 120 10^3/uL (130-400) L 03/06/25 04:43
PT 19.1 Sec (11.4-14.6) H 03/02/25 16:33
INR 1.58 03/02/25 16:33
APTT 38.2 Sec (23.4-35.0) H 03/02/25 16:33
Sodium 134 mmol/L (135-145) L 03/06/25 04:43
Potassium 3.7 mmol/L (3.5-5.1) 03/06/25 04:43
BUN 16 mg/dl (9-20) 03/06/25 04:43
Creatinine 0.7 mg/dL (0.7-1.3) 03/06/25 04:43
Glucose 109 mg/dl (70-99) H 03/06/25 04:43
Vital Signs and I&O:
Vital Signs
Temp Pulse Resp BP Pulse Ox
98.2 F 90 18 101/63 95
03/06/25 11:12 03/06/25 13:00 03/06/25 11:12 03/06/25 11:12 03/06/25 11:12
Vital Signs
Temp Pulse Resp BP Pulse Ox
98.2 F 90 18 101/63 95
03/06/25 11:12 03/06/25 13:00 03/06/25 11:12 03/06/25 11:12 03/06/25 11:12
Intake & Output
03/04/25 03/05/25 03/06/25 03/07/25
06:59 06:59 06:59 06:59
Intake Total 378.0 / 378.0 1088 / 1088 1200 / 1200 240 / 240
Output Total 1785 / 1785 2030 / 2030 1750 / 1750 200 / 200
Balance -1407.0 / -1407.0 -942 / -942 -550 / -550 40 / 40
Physical Exam
Physical Exam
General: Well developed, well nourished in NAD.
Neck: Supple, no JVD, HJR, carotids +2 B/L, no bruits bilaterally.
Heart: Non displaced PMI, RRR, no murmurs, No S3, S4, no rubs.
Lungs: Scattered rhonchi
Sternal dressings noted
Extremities: No clubbing, cyanosis or edema bilaterally.
Neuro: Grossly nonfocal, awake, alert and oriented x3.
--- NOTE | 2025-03-06 16:38 | W.PN.UPDATE ---
Update Note
Progress Note Update
Patient's called @ 1640 to report prescription did not go through to preferred pharmacy ([facility]) even though it was selected in the computer. Attempted to resend scripts however computer will not accept pharmacy selection. Oxycodone went to
[facility] and patient will pick that prescription up there. Prescription for metoprolol, gabapentin, Protonix, and Zetia called into preferred pharmacy
--- NOTE | 2025-03-07 17:59 | W.PN.UPDATE ---
Update Note
Progress Note Update
CDI Inquiry: Expected acute blood loss anemia secondary to post-operative cardiothoracic surgery.
== END 2025-03-06 15:16 | disposition home or self-care (01) | DRG 220 ==
LOC: CVICU 08:14
PROVIDERS: Anesthesiology; ADMITTING PHYSICIAN Thoracic Surgery (Cardiothoracic Vascular Surgery); CONSULT PHYSICIAN Internal Medicine; FAMILY PHYSICIAN Family Medicine
PROC: 02RF08Z Replacement of Aortic Valve with Zooplastic Tissue, Open Approach (ICD-10-PCS; 2025-03-02)
PROC: 02Q50ZZ Repair Atrial Septum, Open Approach (ICD-10-PCS; 2025-03-02)
PROC: B24BZZ4 Ultrasonography of Heart with Aorta, Transesophageal (ICD-10-PCS; 2025-03-02)
PROC: 5A1221Z Performance of Cardiac Output, Continuous (ICD-10-PCS; 2025-03-02)
PROC: 06BP0ZZ Excision of Right Saphenous Vein, Open Approach (ICD-10-PCS; 2025-03-02)
PROC: 021009W Bypass Coronary Artery, One Artery from Aorta with Autologous Venous Tissue, Open Approach (ICD-10-PCS; 2025-03-02)
PROC: 02580ZZ Destruction of Conduction Mechanism, Open Approach (ICD-10-PCS; 2025-03-02)
PROC: 02100Z9 Bypass Coronary Artery, One Artery from Left Internal Mammary, Open Approach (ICD-10-PCS; 2025-03-02)
PROC: 02L70CK Occlusion of Left Atrial Appendage with Extraluminal Device, Open Approach (ICD-10-PCS; 2025-03-02)
DX: I35.0 Nonrheumatic aortic (valve) stenosis (principal); D62 Acute posthemorrhagic anemia; D68.9 Coagulation defect, unspecified; I51.0 Cardiac septal defect, acquired; E87.1 Hypo-osmolality and hyponatremia; I25.10 Atherosclerotic heart disease of native coronary artery without angina pectoris; I48.0 Paroxysmal atrial fibrillation; I10 Essential (primary) hypertension; N40.0 Benign prostatic hyperplasia without lower urinary tract symptoms; E78.5 Hyperlipidemia, unspecified; E66.9 Obesity, unspecified; R06.89 Other abnormalities of breathing; R31.9 Hematuria, unspecified; Z68.38 Body mass index [BMI] 38.0-38.9, adult; Z79.01 Long term (current) use of anticoagulants; Z79.82 Long term (current) use of aspirin; Z79.899 Other long term (current) drug therapy
CPT/HCPCS: 36415; 71045; 71046; 80048; 80053; 81003; 82248; 82330; 82565; 82805; 82810; 82947; 82962; 83036; 83735; 84132; 84302; 84520; 85014; 85018; 85025; 85027; 85049; 85610; 85730; 86850; 86900; 86901; 86920; 87070; 88305; 88311; 93005; 93312; 93320; 93325; 93650; 93880; 94002; J2916

== ENCOUNTER 2025-03-15 16:25 | Inpatient (IN) | payer MEDICARE, OTHER, SELFPAY ==
[2025-03-15] VITALS (7 sets, daily range): BP systolic 113–156; BP diastolic 64–90; BMI 39.9; BMI 39.0
--- NOTE | 2025-03-15 14:40 | ED.GENMED ---
History of Present Illness
General
Chief Complaint: Breathing Problem
Source: patient, records and spouse
Exam Limitations: none
Time Seen by Provider: 03/15/25 14:15
Nursing documentation reviewed up to this point in time: agreed with
History of Present Illness
History of Present Illness:
69-year-old male with a past medical history of hypertension, hyperlipidemia, CAD status post CABG, atrial fibrillation on Eliquis, aortic stenosis status post TAVR who presents to the emergency department for evaluation of shortness of breath. Of
note patient had surgery with Dr. Suárez on 03/02/2025�had CABG as well as aortic valve replacement. He was discharged 03/06/2025 and has been home since. He reports that since the surgery he has had off-and-on issues with palpitations/tachycardia and
has been in and out of atrial fibrillation�symptoms were severe enough to the point that he was actually scheduled for cardioversion today as an outpatient but this was canceled after he converted to sinus rhythm spontaneously. He says that he has
had progressive shortness of breath since discharge as well as mild cough/wheeze. He has had incisional pain but this is actually generally improving. Denies any other chest pains. He has had some increased urinary frequency and dysuria over the
past day or 2 as well. He has had swelling in his right lower extremity where he had vein harvested but this is also generally improving. He denies any fevers or chills. It sounds like he has been in communication with his edge beader (
Stephanie) about the symptoms and with progressive symptoms ultimately opted to come to the emergency room.
Review of Systems
Review of Systems
All Other Systems: ROS reviewed and negative except as documented in HPI and ROS
Constitutional: Denies fever or chills
Respiratory: Reports cough and trouble breathing
Cardiac: Reports chest pain (Incisional pain); Denies palpitations
ABD/GI: Denies abdominal pain, nausea or vomiting
Musculoskeletal: Reports edema; Denies neck pain or back pain
Neurological: Denies dizzy or headache
Phy Exam
Physical Exam
Physical Exam:
General: Awake, alert, oriented x3; no acute distress
Head: Normocephalic, atraumatic
Eyes: Conjunctiva normal, sclera anicteric
Throat: Airway intact, handling secretions
Neck: Trachea midline no JVD
Lungs: Patient has tachypnea with no hypoxia; he has rales at the lung bases bilaterally with scattered expiratory wheeze
Heart: Regular rate and rhythm, no murmurs, gallops, or rubs; well-healing sternotomy incision with some slight surrounding bruising but no signs of dehiscence or infection
Abd: Soft, non distended, nontender
Neuro: No gross deficits
Extremities: Patient has well-healing incision right medial thigh and significant surrounding bruising in the posterior medial thigh and some edema in the right leg; no calf tenderness or erythema; no edema in the left lower extremity; good pulses
throughout
Scores
Heart Failure Risk
Heart Failure Risk Score: Not Applicable
Heart Score for Chest Pain Patients
STEMI patient?: Not applicable
Withdrawal Assessment of Alcohol
Withdrawal Assessment Completed?: Not applicable
Course
Orders/Labs/Results
Orders:
Orders
03/15/25 14:02
Electrocardiogram (*1) Urgent
Reason for Study: Shortness of Breath
EKG- Treatment ONCE
03/15/25 14:39
CR Chest Portable - 1 View Urgent
Comment:
Reason For Exam: sob
Reason Study Needs to be Portable: Unable to Transport
03/15/25 14:44
Complete Blood Count/With Diff Urgent
Comprehensive Metabolic Panel Urgent
NT-proBNP Urgent
Troponin I Urgent
Urinalysis Reflex To Culture Urgent
Date Specimen was Collected: 03/15/25
Time Specimen was Collected: 14:32
Urine Microscopic Reflex Cult Urgent
Urine Culture Urgent
AMOR Source: U
Specimen Description:
Date Specimen was Collected: 03/15/25
Time Specimen was Collected: 14:32
03/15/25 15:04
Bladder Scan- Treatment ONCE
03/15/25 15:14
Lactate Level [Lactic Acid] Urgent
03/15/25 15:15
Blood Culture Q30M
AMOR Source: Blood/Venous
Specimen Description:
03/15/25 15:20
CefTRIAXone [Rocephin] 1,000 mg IV NOW STA
Doxycycline Hyclate [Vibramycin] 100 mg 0.9% Sodium Chloride 250 ml [Nss] 250 ml IV NOW
03/15/25 15:45
Blood Culture Q30M
AMOR Source: Blood/Venous
Specimen Description:
Abnormal Lab Results
03/15/25
14:44
WBC 18.6 H 10^3/uL
(4.8-10.8)
RBC 3.51 L 10^6/uL
(4.70-6.10)
Hgb 10.9 L g/dL
(13.0-18.0)
Hct 32.3 L %
(39.0-52.0)
MCH 31.1 H pg
(27.0-31.0)
RDW 16.0 H %
(11.5-14.5)
Abs Immat Gran (auto) 0.1 H 10^3/uL
(0-0.05)
Absolute Neuts (auto) 16.8 H 10^3/uL
(1.4-6.5)
Absolute Lymphs (auto) 0.9 L 10^3/uL
(1.2-3.4)
Absolute Monos (auto) 0.7 H 10^3/uL
(0.1-0.6)
Neutrophils % 90.3 H %
(42.2-75.2)
Lymphocytes % 4.9 L %
(20.5-51.1)
Sodium 133 L mmol/L
(135-145)
Glucose 114 H mg/dl
(70-99)
Total Bilirubin 1.4 H mg/dl
(0.2-1.3)
Troponin I 0.153 H* ng/ml
Ur Occult Blood Reflex 2+ A
(Negative)
Urine Nitrite (Reflex) Positive A
(Negative)
Urine Urobilinogen 2+ A
(Neg - 1+)
Leukocyte Esterase Rfl 3+ A
(Negative)
Urine Albumin (Reflex) 2+ A
(Neg - Trace)
03/15/25 14:44
03/15/25 14:44
Vital Signs
Initial and Last Documented VS:
Initial Vital Signs
Temp Pulse Resp BP Pulse Ox
36.8 C 84 20 138/76 97
03/15/25 13:57 03/15/25 13:57 03/15/25 13:57 03/15/25 13:57 03/15/25 13:57
Last Documented Vital Signs
Temp Pulse Resp BP Pulse Ox
36.8 C 88 34 138/76 98
03/15/25 13:57 03/15/25 14:30 03/15/25 14:30 03/15/25 13:57 03/15/25 14:41
MDM/Problems Addressed
Differential Diagnosis Includes:
Shortness of breath: CHF, dysrhythmia/A-fib, pneumonia, anemia
Urinary symptoms: UTI, hyperglycemia, diuretic related urinary symptoms
MDM/Problems Addressed:
69-year-old male with history as noted significant for recent TAVR CABG on 03/[address] Suárez presents to the ER with progressive shortness of breath, intermittent tachycardia/palpitations as well as urinary symptoms since surgery. Vitals here in
the emergency room were significant for tachypnea but no hypoxia, no tachycardia. EKG shows sinus rhythm. Plan to place an IV check labs including a CBC and a CMP, proBNP. Will check urinalysis. Will check chest x-ray. Will discuss with
cardiology/CT surgeons. Reassess at the above.
Initial labs reviewed: CBC does show leukocytosis to 18.6 which is increased from discharge value significantly. Hemoglobin 10.9 which is increasing postop. 90% neutrophils on differential. Chemistry no clinically significant abnormalities.
Added lactate and blood cultures. Chest x-ray reviewed by me it does appear to show a left lower lobe pneumonia. Urinalysis also appears consistent with UTI. Will plan to start on antibiotics, in my judgment admission is indicated for this
patient. Held on fluids as patient appears euvolemic and had recent cardiac surgery and history of CHF. Discussed with CT surgery given recent procedure they are in agreement with this plan. Updated patient's edge beader. Discussed with
hospitalist for admission.
Chronic conditions affecting care:
A-fib, aortic stenosis status post valve replacement, CAD status post CABG
*Radiology
Radiology exam reviewed: preliminary read by ED provider and radiology read reviewed
*Pulse Oximetry
SaO2: 98
Oxygen Mode of Delivery: Room air
Patient hypoxic: no (98%)
*EKG
Interpreted by ED Provider?: Yes
Heart Rate: 84
Rate: normal
Rhythm: sinus
[place]: normal axis
Interval: normal interval
QRS Pattern: normal QRS
Ischemia: no ischemia
*Critical Care Note
Total Time (30-74mins, 75-104mins- exclusive of procedures): Not Applicable
Data Reviewed
Review of Other/Old Records Reveals: Labs, Records, Operative Reports and Discharge Summary
Source: patient, records and spouse
Patient Management
Discussion with other providers: Hospitalist (Discussed with hospitalist) and Farm Implement Mechanic (Discussed with CT surgeon, discussed with edge beader)
Escalation/DeEscalation of care consider admission/obs:
Admission indicated
ED Attending Note
-
Portions of this chart may have been created with voice recognition software.� Occasional wrong word or��sound alike� substitutions may have occurred due to the inherent limitations of voice recognition software.
Discharge Plan
Departure
Patient Disposition: Admit
Date of Disposition: 03/15/25
Time of Disposition: 15:23
Admit to doctor: Saul
Presentation/result/management discussed w/ accepting MD/DO: Hospitalist
Discharge Problem:
Pneumonia, Acute UTI
Prescriptions:
No Action
Eliquis 5 MG tablet
5 mg PO BID
multivitamin Tablet
1 tab PO DAILY
cholecalciferol (vitamin D3) [Vitamin D3] 50 mcg (2,000 unit) Capsule
50 mcg PO BID
dofetilide 250 MCG capsule
250 mcg PO Q12
aspirin 81 mg tablet,delayed release (DR/EC)
81 mg PO DAILY
acetaminophen 325 mg Tablet
650 mg PO Q4HPRN PRN (Reason: mild pain,headache,temp >101F ) Qty: 0 0RF
pantoprazole 40 mg Tablet,Delayed Release (Dr/Ec)
40 mg PO DAILY Qty: 30 2RF
gabapentin 100 mg Capsule
100 mg PO TID Qty: 30 0RF
oxycodone 5 mg Tablet
5 mg PO Q4HPRN PRN (Reason: severe pain) Qty: 10 0RF
ezetimibe 10 mg Tablet
10 mg PO HS Qty: 30 2RF
cyclobenzaprine 10 mg Tablet
5 mg PO Q8HPRN PRN (Reason: muscle spasm) Qty: 10 0RF
metoprolol tartrate 25 mg Tablet
12.5 mg PO Q12 Qty: 60 2RF
metoprolol tartrate 25 mg tablet
12.5 mg PO BID Qty: 60 2RF
gabapentin 100 mg capsule
100 mg PO TID Qty: 30 0RF
oxycodone 5 mg capsule
5 mg PO Q4H PRN (Reason: severe pain) Qty: 10 0RF
pantoprazole [Protonix] 40 mg tablet,delayed release (DR/EC)
40 mg PO DAILY Qty: 30 2RF
ezetimibe [Zetia] 10 mg tablet
10 mg PO DAILY Qty: 30 2RF
Referrals:
Niko Moseley MD [Family Provider, [facility]]
Interventions
Interventions:
*Risk Screen - Suicide Last Done: 03/15/25 14:00
*General Assessment Last Done: 03/15/25 14:00
*Neglect/Abuse Screening Last Done: 03/15/25 14:47
*ED- Fall Risk Assessment Last Done: 03/15/25 14:46
*ED COVID-19 Vaccine History Last Done: 03/15/25 14:00
ED- Cardiac Assessment Last Done: 03/15/25 14:36
ED- Pulmonary Assessment Last Done: 03/15/25 14:37
Discharge Date and Time
Print Language: MACEDONIAN
[2025-03-15 14:53] LABS: Hematocrit 32.3 % (39.0-52.0); Hemoglobin 10.9 g/dL (13.0-18.0); Mean Corp Hgb Conc. 33.7 g/dL (33.0-37.0); Mean Corpuscular Volume 92.0 fL (80.0-94.0); Nucleated Red Blood Cells % 0 % (-); Platelet Count 244 10^3/uL (130-400); Red Cell Dist. Width 16.0 % (11.5-14.5)
[2025-03-15 15:06] LABS: ALT (SGPT) 37 U/L (0-50); AST (SGOT) 26 U/L (17-59); Albumin 4.3 g/dl (3.5-5.0); Alkaline Phosphatase 78 U/L (38-126); Blood Urea Nitrogen 15 mg/dl (9-20); Calcium 9.0 mg/dl (8.4-10.2); Carbon Dioxide 27 mmol/L (22-30); Chloride 100 mmol/L (98-107); Estimated Creatinine Clearance 106 ml/min; Glucose 114 mg/dl (70-99); Potassium 4.9 mmol/L (3.5-5.1); Sodium 133 mmol/L (135-145); Total Protein 7.0 g/dl (6.3-8.2); eGFR > 60.00
[2025-03-15 15:19] LABS: Urine Character Slightly Cloudy (Clear)
[2025-03-15 15:21] LABS: Troponin I 0.153 ng/ml
--- NOTE | 2025-03-15 15:26 | HPS.HSE ---
Family Physician
-
Family Physician: Niko Moseley
Chief Complaint
-
shortness of breath and cough
History of Present Illness
Patient is a 69-year-old male with past medical history significant for hypertension, hyperlipidemia, CAD, atrial fibrillation and aortic stenosis who presented to [facility] ED for evaluation of shortness of breath and cough. Patient with recent
hospitalization 03/02/2025 - 03/07/2025 for CABG and aortic valve replacement with Dr. Suárez. Patient reports he had been feeling well at home, up and moving and following all discharge instructions. He reports that he went into atrial fibrillation
last week and has been in contact with primary Maintenance Manager who had cardioversion scheduled for today, he was able to cancel this as overnight he spontaneously converted back to normal sinus rhythm. Yesterday and today he reports increased shortness
of breath with just conversation and a cough. He states he had a record temp of 100.5F this morning at home. Reports chest terrazas at insicision and states is overall improving since surgery, he also reported LLE edema that has been improving, this is
leg that vein was harvested from for CABG. He reported some dysuria the past several days. Denies nausea, vomiting and diarrhea.
Medical History
Past Medical History
Past Medical History: Reports Other
Additional Past Medical History:
hypertension
hyperlipidemia
CAD
atrial fibrillation
aortic stenosis
BPH
Past Surgical History: Reports Other
Additional Past Surgical History:
CABG
aortic valve replacement
DCCV x2
Ablation cardiac 12/2016
Ablation cardiac 10/2018
Back injection (Pt. states result didn't last long) 06/2024
Social History
Tobacco: Non-smoker
Alcohol: None
Drug: None
Personal:
Living: With Family
Employment: Retired
Family History
Family History: Not pertinent
Allergies / Home Medications
Allergies reflects when Allergies were last updated in [employer].
Home Medications with original date entered in [employer]
Allergy/Medication List:
Allergies
Allergy/AdvReac Type Severity Reaction Status Date / Time
atorvastatin Allergy Muscle Verified 03/15/25 14:01
spasms
hydromorphone (From Dilaudid) Allergy Hives Verified 03/15/25 14:01
Home Medications
apixaban 5 mg tablet (Eliquis) 5 mg PO BID Blood Clot Prevention/Tx 12/31/16
cholecalciferol (vitamin D3) 50 mcg (2,000 unit) capsule (Vitamin D3) 50 mcg PO BID Supplement 02/23/25
multivitamin 1 tab PO DAILY Supplement 02/23/25
aspirin 81 mg tablet,delayed release 81 mg PO DAILY Blood Clot Prevention/Tx 03/02/25
dofetilide 250 mcg capsule 250 mcg PO Q12 Arrhythmia 03/02/25
acetaminophen 325 mg tablet 650 mg (2 x 325 mg) PO Q4HPRN PRN mild pain,headache,temp >101F #0 tabs 03/06/25
ezetimibe 10 mg tablet 10 mg PO HS High cholesterol #30 tabs 03/06/25
gabapentin 100 mg capsule 100 mg PO TID post-op nerve pain #30 caps 03/06/25
oxycodone 5 mg tablet 5 mg PO Q4HPRN PRN severe pain #10 tabs 03/06/25
pantoprazole 40 mg tablet,delayed release (Protonix) 40 mg PO DAILY GI prophylaxis #30 tabs 03/06/25
metoprolol succinate 25 mg tablet,extended release 24 hr (Toprol XL) 50 mg PO BID 03/15/25
Review of Systems
-
History Source: Patient
Constitutional: Reports Fever and Chills
EENT: Denies Sore Throat
Respiratory: Reports Cough and Trouble Breathing (dyspnea )
Cardiac: Reports Chest Pain and Palpitations
Abdomen/GI: Denies Nausea, Vomiting or Diarrhea
: Reports Dysuria (burning with urination )
Skin: Denies Itching
Neurological: Denies Dizzy or Weakness
Psych: Reports Calm
Physical Exam
Vital Signs
Vital Signs
Temp Pulse Resp BP Pulse Ox
98.3 F 88 34 138/76 98
03/15/25 13:57 03/15/25 14:30 03/15/25 14:30 03/15/25 13:57 03/15/25 14:41
Physical Exam
General: Well Developed, Well Nourished, No Apparent Distress and Obese
HEENT: NormoCephalic, Moist mucous membranes and Atraumatic
Respiratory: Rales (bilateral bases ) and Other (tachypnea )
Cardiac: S1/S2, Regular Rhythm, Peripheral Edema (LLE edema appears to be s/p harvest site edema) and Other (well-healing sternotomy incision with some slight surrounding bruising but no signs of dehiscence or infection); No Murmur, Rub or Gallop
GI: Soft, Non Tender, Non Distended and Normal Bowel Sounds; No Organomegaly
Rectal: Deferred by Provider
Genito-urinary: Deferred by me
Musculoskeletal: No Clubbing and No Cyanosis
Skin: Warm and Rash
Neuro: Awake, AO x 3 and Nonfocal/grossly intact
Psych: Calm and Intact Judgment/Insight
Laboratory Results
-
03/15/25 14:44
03/15/25 14:44
Laboratory Results
Total Bilirubin 1.4 mg/dl (0.2-1.3) H 03/15/25 14:44
AST 26 U/L (17-59) 03/15/25 14:44
ALT 37 U/L (0-50) 03/15/25 14:44
Alkaline Phosphatase 78 U/L (38-126) 03/15/25 14:44
Troponin I 0.153 ng/ml H* 03/15/25 14:44
Data Reviewed
-
Diagnostic Radiology: Report Reviewed by me (CXR: There is new consolidation in the left lower lobe. Pleural effusion is suspected. This is likely pneumonia, versus atelectasis.)
Medical Tests (Nuc Med, Echo, EKG etc): Report Reviewed by me (EKG: NORMAL SINUS RHYTHM)
Lab Data: Labs Reviewed by me (WBC 18.6, Neut 90.3, trop 0.153, pBNP 1320)
Impression/Plan
-
IMPRESSION/PLAN:
#shortness of breath likely 2/2 hospital acquired pneumonia
WBC 18.6, Neut 90.3, trop 0.153, pBNP 1320
CXR: There is new consolidation in the left lower lobe. Pleural effusion is suspected. This is likely pneumonia, versus atelectasis.
EKG: NORMAL SINUS RHYTHM
- Admit to telemetry
- Consult Cardiology (CTS aware of admission)
- blood cultures pending
- IV ceftriaxone and doxycycline
- Incentive spirometry
#hypertension
- continue metoprolol
#hyperlipidemia
- continue ezetimibe
#CAD
s/p CABG 03/02/2025
- continue aspirin
#atrial fibrillation
- continue dofetilide, Eliquis and metoprolol
#aortic stenosis
s/p aortic valve replacement 03/02/2025
#BPH
Code status: full code
DVT prophylaxis: Eliquis
--- NOTE | 2025-03-15 15:46 | W.PN.UPDATE ---
Update Note
Progress Note Update
This note serves as an addendum to the H&P by tow bar driver RUSH�
Wendy Wilson��
HPI
69M S/p electively admitted on 03/02/2025 ( Dr Suárez) for AVR, CABG, ASD closure, maze, and clip due to aortic stenosis, coronary artery disease, and PAF for for evaluation of shortness of breath. He was discharged 03/06/2025 and has been home since.
- reports that since the surgery he has had off-and-on issues with palpitations/tachycardia and has been in and out of atrial fibrillation�symptoms were severe enough to the point that he was actually scheduled for cardioversion today as an
outpatient but this was canceled after he converted to sinus rhythm spontaneously.
- also reports progressive shortness of breath since discharge as well as mild cough/wheeze.
- Low grade fever up to 100.5 at home but afebrile at ER
PHX; see above
Relevant VS: Afebrile , Not tachycardic, POx 98 % on RA
PE
Gen: No toxic
HEENT: anicteric
Neck: supple
Lungs: tachypnea. POS rales at both bases of lungs with scattered expiratory wheeze.
Cor: RRR. Well-healing sternotomy incision with some slight surrounding bruising but no signs of dehiscence or infection
Abdomen:�benign exam
WELDING MACHINE OPERATOR RESISTANCE: NFND
MS: well-healing incision right medial thigh and significant surrounding bruising in the posterior medial thigh and some edema in the right leg; no calf tenderness or erythema; no edema in the left lower extremity
Psych: norm mod and affect
Relevant data
03/06/25 03/15/25 03/15/25
04:43 14:44 15:14
WBC 9.8 18.6 H
Hgb 9.1 L 10.9 L
Plt Count 120 L 244
Sodium 134 L 133 L
Potassium 4.9
Creatinine 0.8
eGFR > 60.00
Lactic Acid Pending
Total Bilirubin 1.4 H
Troponin I 0.153 H*
[id number] Pept 1320
Urine Nitrite (Reflex) Positive A
Urine WBC (Reflex) Pending
03/15 CXR:
- LLL PNA ?
03/06/CXR:
- Minimal bilateral pleural effusions.
- Mild subsegmental atelectasis in the basilar segments of the lower lobes.
- Mildly decreased bilateral lung volumes.
- Recent surgical aortic graft replacement, CABG surgery, and left atrial appendage exclusion.
Last hospitalist admission: Date of Admission: 03/02/25 - Date of Discharge: 03/06/25
Procedures: Aortic valve replacement, encompass maze, primary ASD closure, CABG x 2
Primary Diagnosis:
1. Severe aortic valve stenosis
Secondary Diagnoses:
1. Paroxysmal atrial fibrillation on Tikosyn and chronic anticoagulation, s/p PVI and flutter ablation 2017, LA posterior wall isolation 2018
2. Hypertension
3. Hyperlipidemia
4. BPH
5. CAD involving the proximal LAD and diagonal
6. Iatrogenic atrial septal defect from prior ablation
Acute post op respiratory insufficiency
Acute post op anemia (expected)
Acute post op hematuria, resolved
Acute post op coagulopathy
Acute postop hyponatremia
ASSESSMENT & PLAN
Pending Rx reconciliation
Suspected LLL PNA - pending final CXR - presumed HAP
Progressive dyspnea but not hypoxic
Low grade fever up to 100.5 at home but afebrile at ER
new surge of Leucocytosis
- BCx sent
- NEG MRSA screen as of 02/28/25
- Pending LA
- Not met criteria for SIRS and sepsis
- Agree with IV CFTX and PO Doxy
- Incentive spirometry
- Trend WCC and T curve
Recent electively admitted on 03/02/2025 ( Dr Suárez) for AVR, CABG, ASD closure, maze, and clip due to aortic stenosis
HX CAD
- DCA card consult
- CTS aware
HX Prx AF - currently in NSR
- on BOX PRINTER Eliquis
- pending Rx reconciliation
DVT Px: on BOX PRINTER Eliquis
Full code
IP TLM
[2025-03-15 15:48] LABS: Urine Squamous Cell 0-2 /LPF (Few); Urine White Cell 50-60 /HPF (0-5)
[2025-03-15] MEDS: ROCEPHIN 1000 MG IV (16:03)
[2025-03-15] MEDS: VIBRAMYCIN 260 MG IV (16:12)
[2025-03-15] MEDS: TYLENOL 650 MG PO ×2 (18:11→23:57)
--- NOTE | 2025-03-15 18:17 | PTCARENOTE ---
pt ambulated from stretcher to bed with an assist of 2. VSS temp 100.3 pt c/o SIU at an 8 Tylenol given for pain. pt aaox3. oriented to unit. call be within reach. pt care ongoing
[2025-03-15] MEDS: TOPROL XL 50 MG PO (20:09)
[2025-03-15] MEDS: TIKOSYN 250 MCG PO (20:09)
[2025-03-15] MEDS: VITAMIN D3 (cholecalciferol) 50 MCG PO (20:12)
[2025-03-15] MEDS: ELIQUIS 5 MG PO (20:12)
[2025-03-15] MEDS: ROXICODONE 5 MG PO (20:15)
[2025-03-15 21:37] LABS: Troponin I 0.131 ng/ml
[2025-03-15] MEDS: ZETIA 10 MG PO (22:10)
[2025-03-15] MEDS: NEURONTIN 100 MG PO (22:10)
[2025-03-16] VITALS (8 sets, daily range): BP systolic 85–142; BP diastolic 62–72
[2025-03-16] MEDS: VIBRAMYCIN 260 MG IV ×2 (04:52→17:40)
[2025-03-16] MEDS: TYLENOL 650 MG PO ×3 (06:18→23:18)
[2025-03-16 06:19] LABS: Hematocrit 30.8 % (39.0-52.0); Hemoglobin 10.1 g/dL (13.0-18.0); Mean Corp Hgb Conc. 32.8 g/dL (33.0-37.0); Mean Corpuscular Volume 92.8 fL (80.0-94.0); Platelet Count 219 10^3/uL (130-400); Red Cell Dist. Width 15.8 % (11.5-14.5)
--- NOTE | 2025-03-16 06:29 | PTCARENOTE ---
Pt had Troponin I was 0.153 at 03/15 1444. HONING MACHINE SET UP OPERATOR TOOL notified. A second Troponin I level was 0.131 at 03/15 at 2102. HONING MACHINE SET UP OPERATOR TOOL notified of decreased Troponin I level. No further order.
[2025-03-16 06:46] LABS: Blood Urea Nitrogen 14 mg/dl (9-20); Calcium 8.6 mg/dl (8.4-10.2); Carbon Dioxide 27 mmol/L (22-30); Chloride 100 mmol/L (98-107); Estimated Creatinine Clearance 120 ml/min; Glucose 108 mg/dl (70-99); Potassium 4.6 mmol/L (3.5-5.1); Sodium 132 mmol/L (135-145); eGFR > 60.00
--- NOTE | 2025-03-16 07:17 | CON.CAR ---
Addendum entered and electronically signed by Sejal Titus DO 03/16/25 17:29:
I saw and examined the patient.
The Buzzsaw Operator's note was reviewed and I agree with the note.
Comment: Patient was seen and examined with nursing at bedside. Chart/labs/studies reviewed. 69-year-old male with past medical history of recent AVR, CABG x 2, ASD closure, maze, atrial clip on 03/02/[address] Suárez, hypertension, and paroxysmal
atrial fibrillation. He was discharged on postop day 5. He had no A-fib postoperatively. Following his cardiac catheterization he was placed on Lasix 40 mg daily which he states improved his shortness of breath; he was not discharged on Lasix. He
was seen in the office on postop day 8 and was in atrial fibrillation with mildly elevated heart rates associated with fatigue and malaise. A cardioversion was scheduled but he spontaneously converted to sinus rhythm on 03/14/2025. He presented to
the ED on 03/15/2025 with fever, shortness of breath, cough, and dysuria.
General: Awake alert and oriented x 3, nasal cannula O2
Heart: Regular. Positive S1-S2. No murmur. No rub. Midline incision intact without drainage
Lungs: Bronchovesicular breath sounds decreased left greater than right. No wheezes. Fine crackles bilateral bases
Abd: Positive BS, NT/ND, neg rebound/rigidity/guarding
Ext: Trace pedal edema bilaterally right greater than left. Leg incision wounds intact with mild ecchymosis
Neuro: nonfocal
Plan:
Febrile illness/cough concerning for pneumonia Status post recent CABG/AVR on 03/02/2025
Status post CABG/AVR/Atrial clip/maze with Dr. Suárez 03/02/2025
-incisions CDI
-Blood cultures pending
-will check echo today
-Chest ultrasound ordered by CT surgery to assess for pleural effusion
-Appears to have mild volume overload with trace pedal edema and concern for pleural effusion; proBNP 1320�will give Lasix 40 mg IV x 1 and reassess diuretic needs
-CT surgery team aware of patient's admission
History of paroxysmal A-fib, Currently in sinus rhythm
-Patient was found to have recurrent atrial fibrillation during postop visit but spontaneously converted to sinus rhythm
-Continue outpatient Tikosyn and Toprol
-Continue Eliquis anticoagulation
-QTc stable, follow closely with abx use and Tikosyn-ok on Doxycyline and Ceftriaxone
-check daily EKG-ordered
Fever and leukocytosis with pneumonia and UTI
-treatment and workup per primary team
-Cultures pending
Original Note:
Consultation
Consultation Request
Date/Time Consultation Requested: 03/15/2025 1718
Date/Time Consultation Performed: 03/16/2025 0715
Requesting Provider: SALONI Charles
Performing Provider: SALONI Doherty
Reason for Consultation: SOB and cough, h/o CABG/AVR 03/02/2025
Medical History
-
Chief Complaint: SOB and cough
History of Present Illness:
69-year-old male with past medical history AVR, CABG x 2, ASD closure, maze, atrial clip on 03/02/[address] Suárez, hypertension, paroxysmal atrial fibrillation. He was discharged on postop day 5. He had no A-fib postoperatively. A-fib had been
managed with oral anticoagulation, Tikosyn, and metoprolol. He was seen in the office on postop day 8 and was in atrial fibrillation with mildly elevated heart rates associated with fatigue and malaise. A cardioversion was scheduled but he
spontaneously converted to sinus rhythm on 03/14/2025. He presented to the ED on 03/15/2025 with increased shortness of breath with conversation, cough, temp 100.5, and dysuria.
ED workup:
WBC 18.6, proBNP 1320, troponin 0.153-->0.131, Hgb 10.9
Na 132, K 4.6, BUN/creat 14/0.7
UA: 50-60 WBC
Chest x-ray: New consolidation in the left lower lobe, pleural effusion suspected, likely pneumonia versus atelectasis
EKG: NSR, nonspec TWA, QTc 444 ms
Patient admitted for suspected left lower lobe pneumonia. Cardiology consulted given recent CT surgery
PMH:
CABG x 2 and bioprosthetic AVR, ASD closure, maze, and left atrial clip 03/02/2025
paroxysmal A-fib, currently on Eliquis, Tikosyn, metoprolol
-Status post cavotricuspid isthmus ablation for a flutter (despite Flecainide) and PVI for recurrent persistent A-fib on 01/01/2017
-Repeat PVI 11/29/2018
-Recurrent A-fib and started on Tikosyn 12/2018
Aortic stenosis
Coronary artery disease
Obstructive sleep apnea on CPAP
Hyperlipidemia
Past Medical History
Past Medical History: Other (As above)
Past Surgical History: Other (Ablation 01/16, 11/18, back injection 06/25, CABG x 2, bioprosthetic AVR, iatrogenic ASD closure, maze, SEBASTIAN clip number 35mm 03/02/2025)
Social History
Tobacco: Non-Smoker
Alcohol: None
Personal:
Living: With Family
Allergies / Home Medications
Allergy/AdvReac Type Severity Reaction Status Date / Time
atorvastatin Allergy Muscle Verified 03/15/25 14:01
spasms
hydromorphone (From Dilaudid) Allergy Hives Verified 03/15/25 14:01
�Medication �Instructions �Recorded �Confirmed �Type
apixaban 5 mg tablet (Eliquis) 5 mg PO BID Blood Clot 12/31/16 03/15/25 History
Prevention/Tx
cholecalciferol (vitamin D3) 50 50 mcg PO BID Supplement 02/23/25 03/15/25 History
mcg (2,000 unit) capsule (Vitamin
D3)
multivitamin 1 tab PO DAILY Supplement 02/23/25 03/15/25 History
aspirin 81 mg tablet,delayed 81 mg PO DAILY Blood Clot 03/02/25 03/15/25 History
release Prevention/Tx
dofetilide 250 mcg capsule 250 mcg PO Q12 Arrhythmia 03/02/25 03/15/25 History
acetaminophen 325 mg tablet 650 mg (2 x 325 mg) PO Q4HPRN PRN 03/06/25 03/15/25 Rx
mild pain,headache,temp >101F #0
tabs
ezetimibe 10 mg tablet 10 mg PO HS High cholesterol #30 03/06/25 03/15/25 Rx
tabs
gabapentin 100 mg capsule 100 mg PO TID post-op nerve pain 03/06/25 03/15/25 Rx
#30 caps
oxycodone 5 mg tablet 5 mg PO Q4HPRN PRN severe pain #10 03/06/25 03/15/25 Rx
tabs
pantoprazole 40 mg tablet,delayed 40 mg PO DAILY GI prophylaxis #30 03/06/25 03/15/25 Rx
release (Protonix) tabs
metoprolol succinate 25 mg 50 mg PO BID 03/15/25 03/15/25 History
tablet,extended release 24 hr
(Toprol XL)
Review of Systems
-
History Source: Patient
All other systems: Negative unless noted
Constitutional: No Symptoms
Physical Exam
Vital Signs
Temp Pulse Resp BP Pulse Ox
98.3 F 78 16 109/66 96
03/16/25 06:20 03/16/25 03:26 03/16/25 03:26 03/16/25 03:26 03/16/25 03:26
GEN: No distress, awake, Ox3
HEENT: supple, anicteric, mmm
LUNGS: CTA, decreased L base
CV: Reg, S1/S2,, no murmur
ABD: soft, BS+, NT/ND
EXT: tr LE edema, R thigh graft incision CDI
NEURO: Gross non-focal
SKIN: No rash
Lab Results
03/16/25 05:58
03/16/25 05:58
Troponin I 0.131 ng/ml H* 03/15/25 21:02
Dut-W-Kdmnxpqyjbc Pept 1320 pg/ml 03/15/25 14:44
Impression / Plan
-
PCP: Niko Moseley
Primary labor delivery specialist: Juaquin Brown
Impression:
LLL pneumonia
SOB
cough
pleural effusion L
UTI
CABG x 2 (RODRIGUEZ to LAD, aorto to R SVG to diagonal), bio AVR, ASD closure, SEBASTIAN clip, surgical MAZE 03/02/2025
paroxysmal afib
HTN
hyperlipidemia
DAKOTA on CPAP
Previous cardiovascular testing:
Cardiac cath 01/24/2025:
RA 12, PA 58/23, PCWP 28 with V waves to 47, cardiac output/cardiac index 4.6/2.04
Left main free of disease
LAD: Proximal 80-85% stenosis
Left circumflex: Free of disease
RCA: Diffuse mild atherosclerotic plaque distally
Echo 12/13/2024: EF 60 to 65%, moderate to severe concentric LVH, stage III diastolic dysfunction, MAC, mild to moderate AR, moderate to severe with peak/mean gradient 66/39 mmHg, mild AR, MAY 1.0 cm�, mild TR, PAP 35 mmHg, proximal ascending
aorta 4.5 cm
Plan:
Status post CABG/AVR
- He is now 2 weeks postop
-incisions CDI
- Back in sinus rhythm but did have paroxysmal A-fib after discharge
-will check echo today
-was not discharged on diuretic. appears mildly vol overloaded- Lasix 40 mg IV x 1- I ordered
-will notify CT surgery of admission
History of paroxysmal A-fib
-chronically on Tikosyn, Eliquis, Toprol
-maintaining NSR
-QTc stable, follow closely with abx use and Tikosyn-ok on Doxycyline and Ceftriaxone
-check daily EKG-ordered
Pneumonia and UTI
- treatment and workup per primary team
-BC pending
Data Reviewed
-
EKG: Tracing Personally Visualized and interpreted
Labs: Labs Reviewed by me
[2025-03-16] MEDS: NEURONTIN 100 MG PO ×3 (08:28→23:19)
[2025-03-16] MEDS: THERAGRAN 1 TABLET PO (08:28)
[2025-03-16] MEDS: TIKOSYN 250 MCG PO ×2 (08:28→21:12)
[2025-03-16] MEDS: VITAMIN D3 (cholecalciferol) 50 MCG PO ×2 (08:28→21:12)
[2025-03-16] MEDS: ASPIR LOW (ENTERIC COATED) 81 MG PO (08:28)
[2025-03-16] MEDS: PROTONIX 40 MG PO (08:28)
[2025-03-16] MEDS: TOPROL XL 50 MG PO ×2 (08:29→21:12)
[2025-03-16] MEDS: ELIQUIS 5 MG PO ×2 (08:29→21:12)
--- NOTE | 2025-03-16 10:52 | W.PN.HOSP.TC ---
Addendum entered and electronically signed by Jordan Alcala MD 03/16/25 11:01:
Troponin elevation-in indeterminate range-nonischemic myocardial injury/secondary to recent cardiac surgery
Original Note:
Today's Communication/Plan
-
Continue with ceftriaxone and doxycycline
Ultrasound of the left chest and thoracentesis if there is fluid
IV diuresis per cardiology
Bladder scan
Assessment / Plan
Assessment / Plan
Postop low-grade fever-suspect possibly urinary source
UTI-patient with dysuria and frequency with positive urinalysis. Initiated on ceftriaxone which I would continue. Cultures including urine and bladder pending. Check for any retention. Follow white count
Sepsis-meets the criteria for sepsis with fever and white count.
Shortness of breath
Ongoing evaluation to rule out pneumonia and CHF
Chest x-ray shows left lower zone effusion versus pneumonia versus atelectasis.
Clinically feel UTI driving fevers
Check a ultrasound of the left lung and if there is any fluid we will do diagnostic thoracentesis. In meantime continue antibiotics with ceftriaxone and doxycycline.
Diuretics per cardiology
Paroxysmal atrial fibrillation
In sinus rhythm
Continue with beta-maria teresa, dofetilide. Follow on telemetry
S/p surgical AVR, CABG, SEBASTIAN clipping-patient feels he was improving postsurgically in general.
CT surgery aware.
Discussed with cardiology-initiated on IV Lasix.
Discussed with RN
Total time spent on today's encounter was 52 minutes which included time spent in counseling the patient/family regarding diagnosis and treatment plan as listed above, goals of care, and symptom management. Case was discussed with nursing staff,
specialists, and care coordinators/case management. All labs and imaging personally reviewed by me. Remainder the time spent in detailed review of previous records, lab data, imaging, and other medical provider documentation.
Anticipated Discharge: > 48 hours
Subjective/Interval History
-
Date of Service: March 16, 2025
His main symptom was dysuria and frequency of urine. He thinks he had catheter for 1 day with the surgery.
Remote history of UTI. Denies any prostate issues or prostatic symptoms.
Has had a symptom of shortness of breath. His staff noticed little bit of lower extremity edema. He says he was on Lasix before surgery and not sure why that was discontinued postsurgery.
He had intermittent palpitations and was going to get a left trickle cardioversion as an outpatient but was canceled because he went back spontaneously to sinus rhythm.
Denies any chest pain today.
Objective Data
-
Labs:
Laboratory Results
03/16/25
05:58
WBC 18.1 H
Hgb 10.1 L
Hct 30.8 L
Plt Count 219
Sodium 132 L
Potassium 4.6
Chloride 100
Carbon Dioxide 27
BUN 14
Creatinine 0.7
Glucose 108 H
Calcium 8.6
Vital Signs:
Vital Signs
Temp Pulse Resp BP Pulse Ox
98.7 F 79 18 113/68 96
03/16/25 07:45 03/16/25 08:29 03/16/25 07:45 03/16/25 08:29 03/16/25 07:45
I&O
03/15/25 03/16/25 03/17/25
06:59 06:59 06:59
Intake Total 260 / 260
Output Total 1525 / 1525
Balance -1265 / -1265
Physical Exam
-
General: Comfortable
Respiratory: Non Labored Respirations and Decreased Breath Sounds (Left base); Negative Wheezes or Accessory Resp Muscle Use
Cardiac: Regular Rhythm and S1/S2; Negative Tachycardic
GI: Soft
Musculoskeletal: Edema, Left Upper Extrem (1+ bilateral) and Edema, Right Lower Extrem
Neuro: AO x 3
Psych: Calm
Data Reviewed
-
Labs: Labs Reviewed by me
[2025-03-16] MEDS: LASIX 40 MG IV (11:00)
--- NOTE | 2025-03-16 15:00 | PTCARENOTE ---
IRAD RN- attempted to call patient down for thoracentesis. Per November, patients nurse, patient is nauseous and does not want to do thoracentesis at this time.
[2025-03-16] MEDS: ZOFRAN 4 MG IV (15:15)
--- NOTE | 2025-03-16 15:35 | CM ---
CM reviewed chart, patient seen bedside with , initial assessment completed, patient recently discharged from Hospital earlier this month. Patient lives with in a ranch home with basement, 5-6 steps to enter. Patient is independent with
ADLs/IADLs, denies use of DME, has CPAP through [employer]. Patient reports VN after open heart surgery, unsure agency, denies SNF. Patient confirms PCP Niko Moseley, pharmacy [facility], confirms prescription coverage. Patient denies
insecurities/needs at home. CM will continue to follow for all discharge planning needs.
Plan; home no needs likely
[2025-03-16] MEDS: STERILE WATER FOR INJECTION 10 ML IV (17:40)
[2025-03-16] MEDS: ROCEPHIN 1000 MG IV (17:41)
[2025-03-16] MEDS: ROXICODONE 5 MG PO (21:11)
[2025-03-16] MEDS: ZETIA 10 MG PO (23:19)
[2025-03-17 03:45] VITALS: BP 155/83
[2025-03-17] MEDS: VIBRAMYCIN 260 MG IV ×2 (04:41→15:52)
[2025-03-17] MEDS: TYLENOL 650 MG PO ×3 (06:35→19:39)
[2025-03-17 07:00] VITALS: BP 102/57
[2025-03-17] MEDS: ELIQUIS 5 MG PO ×2 (08:48→19:44)
[2025-03-17] MEDS: VITAMIN D3 (cholecalciferol) 50 MCG PO ×2 (08:48→19:49)
[2025-03-17] MEDS: PROTONIX 40 MG PO (08:48)
[2025-03-17] MEDS: TIKOSYN 250 MCG PO ×2 (08:48→19:45)
[2025-03-17] MEDS: ASPIR LOW (ENTERIC COATED) 81 MG PO (08:49)
[2025-03-17] MEDS: NEURONTIN 100 MG PO ×3 (08:49→22:23)
[2025-03-17] MEDS: THERAGRAN 1 TABLET PO (08:49)
[2025-03-17] MEDS: TOPROL XL 50 MG PO ×2 (08:49→19:40)
[2025-03-17 09:27] LABS: Hematocrit 29.8 % (39.0-52.0); Hemoglobin 10.1 g/dL (13.0-18.0); Mean Corp Hgb Conc. 33.9 g/dL (33.0-37.0); Mean Corpuscular Volume 91.1 fL (80.0-94.0); Platelet Count 195 10^3/uL (130-400); Red Cell Dist. Width 15.4 % (11.5-14.5)
[2025-03-17 09:46] LABS: Blood Urea Nitrogen 15 mg/dl (9-20); Calcium 8.5 mg/dl (8.4-10.2); Carbon Dioxide 25 mmol/L (22-30); Chloride 100 mmol/L (98-107); Estimated Creatinine Clearance 120 ml/min; Glucose 104 mg/dl (70-99); Potassium 3.8 mmol/L (3.5-5.1); Sodium 132 mmol/L (135-145); eGFR > 60.00
--- NOTE | 2025-03-17 10:53 | W.PN.CARDCBS ---
Addendum entered and electronically signed by Foster Castro MD 03/17/25 12:28:
I saw and examined the patient.
The MARKETING LIAISON or PA's note was reviewed and I agree with the note.
Comment: General: Well developed, well nourished in NAD.
Neck: Supple, no JVD, HJR, carotids +2 B/L, no bruits bilaterally.
Heart: Non displaced PMI, RRR, no murmurs, No S3, S4, no rubs.
Lungs: Scattered rhonchi at the bases
Skin: Sternotomy well-healed
Extremities: No clubbing, cyanosis or edema bilaterally.
Neuro: Grossly nonfocal, awake, alert and oriented x3.
Continue to treat for pneumonia and CHF with antibiotics and IV Lasix. Possible changed to oral Lasix on 03/18. Discussed in detail with at bedside.
Original Note:
Today's Communication / Plan
-
cont IV diuresis and transition to oral at discharge
ordered Lasix 40 mg IV x 1 and KCl 40 meq x 1
Impression / Plan
-
PCP: Niko Moseley
Primary human resources manager manufacturing: Juaquin Brown
Impression:
LLL pneumonia
SOB
cough
pleural effusion L s/p thoracentesis
UTI
CABG x 2 (RODRIGUEZ to LAD, aorto to R SVG to diagonal), bio AVR, ASD closure, SEBASTIAN clip, surgical MAZE 03/02/2025
paroxysmal afib
HTN
hyperlipidemia
DAKOTA on CPAP
Previous cardiovascular testing:
Cardiac cath 01/24/2025:
RA 12, PA 58/23, PCWP 28 with V waves to 47, cardiac output/cardiac index 4.6/2.04
Left main free of disease
LAD: Proximal 80-85% stenosis
Left circumflex: Free of disease
RCA: Diffuse mild atherosclerotic plaque distally
Echo 12/13/2024: EF 60 to 65%, moderate to severe concentric LVH, stage III diastolic dysfunction, MAC, mild to moderate AR, moderate to severe with peak/mean gradient 66/39 mmHg, mild AR, MAY 1.0 cm�, mild TR, PAP 35 mmHg, proximal ascending
aorta 4.5 cm
Echo 03/16/2025: nl LV/RV size and fxn, LVEF 60%, BioAVR 21/9 mmHg, tr AI, mild-mod MR, mild MS
Plan:
Status post CABG/AVR
- He is now 2 weeks postop
-incisions CDI
- Back in sinus rhythm but did have paroxysmal A-fib after discharge
-echo 03/16/2025: nl LV/RV, EF 60%, BIo AVR 21/9,
-s/p L thoracentesis 03/16 for 1150 blood tinged pleural fluid
-was not discharged on diuretic. appears mildly vol overloaded- Lasix 40 mg IV x 1 03/16, wt down 6 lbs overnight to 256 lbs. will repeat IV Lasix today as still appears mildly vol overloaded and plan to d/c or oral Lasix. I ordered Lasix 40 mg IV x 1
-will replete K. K=3.8, ordered KCl 40 meq x 1
-BUN/creat stable 15/0.7
-CT surgery aware of admission
-OOB to ambulate
History of paroxysmal A-fib
-chronically on Tikosyn, Eliquis, Toprol
-maintaining NSR
-QTc stable, follow closely with abx use and Tikosyn-ok on Doxycyline and Ceftriaxone
-check daily EKG-ordered
Pneumonia and UTI
- treatment and workup per primary team
-BC pending, so far NG
- t max 100.5 03/16 , wbc improved 10.6
Progress Note - School Fundraising Director
Subjective
Date of Service: March 17, 2025
SOB improving
remains in NSR
no CP, palps, lightheadedness
Objective
Labs:
03/17/25 08:33
03/17/25 08:33
Labs
Hgb 10.1 g/dL (13.0-18.0) L 03/17/25 08:33
Hct 29.8 % (39.0-52.0) L 03/17/25 08:33
Plt Count 195 10^3/uL (130-400) 03/17/25 08:33
Sodium 132 mmol/L (135-145) L 03/17/25 08:33
Potassium 3.8 mmol/L (3.5-5.1) 03/17/25 08:33
BUN 15 mg/dl (9-20) 03/17/25 08:33
Creatinine 0.7 mg/dL (0.7-1.3) 03/17/25 08:33
Glucose 104 mg/dl (70-99) H 03/17/25 08:33
Troponins
03/15/25 03/15/25
14:44 21:02
Troponin I 0.153 H* 0.131 H*
Vital Signs and I&O:
Vital Signs
Temp Pulse Resp BP Pulse Ox
98.2 F 78 18 121/59 96
03/17/25 07:00 03/17/25 08:49 03/17/25 07:00 03/17/25 08:49 03/17/25 07:00
Vital Signs
Temp Pulse Resp BP Pulse Ox
98.2 F 78 18 121/59 96
03/17/25 07:00 03/17/25 08:49 03/17/25 07:00 03/17/25 08:49 03/17/25 07:00
Intake & Output
03/15/25 03/16/25 03/17/25 03/18/25
06:59 06:59 06:59 06:59
Intake Total 260 / 260 1210 / 1210
Output Total 1525 / 1525 2555 / 2555
Balance -1265 / -1265 -1345 / -1345
Physical Exam
Physical Exam
GEN: No distress, awake, Ox3
HEENT: supple, anicteric, mmm
LUNGS: few crackles bases
CV: Reg, S1/S2, no murmur
ABD: soft, BS+, NT/ND
EXT:trace LE edema R>L
NEURO: Gross non-focal
SKIN: No rash. Sternal incision RLE incision well healed
[2025-03-17] MEDS: LASIX 40 MG IV (11:09)
[2025-03-17] MEDS: KCL 40 MEQ PO (11:10)
[2025-03-17 11:36] VITALS: BP 105/64
--- NOTE | 2025-03-17 11:41 | W.PN.HOSP.TC ---
Today's Communication/Plan
-
Check urine culture for fosfomycin sensitivities
Continue with IV Lasix
DC planning
Assessment / Plan
Assessment / Plan
Postop low-grade fever-suspect possibly urinary source
UTI-patient with dysuria and frequency with positive urinalysis. Urine culture positive for Klebsiella aerogenes. CW ceftriaxone .Check for fosfomycin sensitivities . Pt on Dofetilide and interacts with cipro and Bactrim. Not bacteremic. Check
for any retention. Follow white count-normalized
Sepsis-meets the criteria for sepsis with fever and white count.
Shortness of breath
Left pleural effusion s/p thoracentesis at 1150 mL
Lower extremity edema noted
Clinical concern is for acute CHF diastolic heart failure. Continue with diuretics per cardiology.
Follow-up chest x-ray showed improved aeration in the left lung. There minimal basilar opacities which I suspect may be secondary to poor inspiration. Clinically not acting like pneumonia.
Paroxysmal atrial fibrillation
In sinus rhythm
Continue with beta-maria treesa, dofetilide. Follow on telemetry
S/p surgical AVR, CABG, SEBASTIAN clipping-patient feels he was improving postsurgically in general.
CT surgery aware.
Discussed with at bedside
Likely DC in a.m.
Anticipated Discharge: Within 24 hours
Subjective/Interval History
-
Date of Service: March 17, 2025
Patient still with some dysuria. Frequency is okay. No fever or chills. No nausea vomiting.
Breathing is okay at rest. Denies any chest pain.
Objective Data
-
Labs:
Laboratory Results
03/17/25
08:33
WBC 10.6
Hgb 10.1 L
Hct 29.8 L
Plt Count 195
Sodium 132 L
Potassium 3.8
Chloride 100
Carbon Dioxide 25
BUN 15
Creatinine 0.7
Glucose 104 H
Calcium 8.5
Vital Signs:
Vital Signs
Temp Pulse Resp BP Pulse Ox
98.2 F 82 18 105/64 95
03/17/25 11:36 03/17/25 11:36 03/17/25 11:36 03/17/25 11:36 03/17/25 11:36
I&O
03/16/25 03/17/25 03/18/25
06:59 06:59 06:59
Intake Total 260 / 260 1210 / 1210
Output Total 1525 / 1525 2555 / 2555
Balance -1265 / -1265 -1345 / -1345
Physical Exam
-
General: Comfortable
Respiratory: Crackles (Bibasilar) and Non Labored Respirations; Negative Wheezes or Accessory Resp Muscle Use
Cardiac: Regular Rhythm and S1/S2
GI: Soft
Neuro: AO x 3
Data Reviewed
-
Diagnostic Radiology: Report Reviewed by me (Chest x-ray)
Labs: Labs Reviewed by me
[2025-03-17] MEDS: STERILE WATER FOR INJECTION 10 ML IV (15:52)
[2025-03-17 16:08] VITALS: BP 96/58
[2025-03-17] MEDS: ROCEPHIN 1000 MG IV (16:14)
[2025-03-17 19:43] VITALS: BP 103/66
[2025-03-17] MEDS: ZETIA 10 MG PO (22:23)
[2025-03-17 23:34] VITALS: BP 108/65
[2025-03-18] MEDS: TYLENOL 650 MG PO (02:10)
[2025-03-18] MEDS: VIBRAMYCIN 260 MG IV (04:13)
[2025-03-18 04:26] VITALS: BP 110/61
[2025-03-18 08:11] VITALS: BP 105/60
[2025-03-18] MEDS: NEURONTIN 100 MG PO (08:27)
[2025-03-18] MEDS: VITAMIN D3 (cholecalciferol) 50 MCG PO (08:28)
[2025-03-18] MEDS: PROTONIX 40 MG PO (08:28)
[2025-03-18] MEDS: ELIQUIS 5 MG PO (08:28)
[2025-03-18] MEDS: THERAGRAN 1 TABLET PO (08:28)
[2025-03-18] MEDS: TOPROL XL 50 MG PO (08:28)
[2025-03-18] MEDS: TIKOSYN 250 MCG PO (08:28)
[2025-03-18] MEDS: ASPIR LOW (ENTERIC COATED) 81 MG PO (08:28)
--- NOTE | 2025-03-18 10:09 | W.PN.CARDCBS ---
Today's Communication / Plan
-
Stable cardiology status for discharge to home on Lasix 40 mg daily and check renal profile in 1 week
Impression / Plan
-
PCP: Niko Moseley
Primary stone setter: Juaquin Brown
Impression:
LLL pneumonia
SOB
cough
pleural effusion L s/p thoracentesis
UTI
CABG x 2 (RODRIGUEZ to LAD, aorto to R SVG to diagonal), bio AVR, ASD closure, SEBASTIAN clip, surgical MAZE 03/02/2025
paroxysmal afib
HTN
hyperlipidemia
DAKOTA on CPAP
Previous cardiovascular testing:
Cardiac cath 01/24/2025:
RA 12, PA 58/23, PCWP 28 with V waves to 47, cardiac output/cardiac index 4.6/2.04
Left main free of disease
LAD: Proximal 80-85% stenosis
Left circumflex: Free of disease
RCA: Diffuse mild atherosclerotic plaque distally
Echo 12/13/2024: EF 60 to 65%, moderate to severe concentric LVH, stage III diastolic dysfunction, MAC, mild to moderate AR, moderate to severe with peak/mean gradient 66/39 mmHg, mild AR, MAY 1.0 cm�, mild TR, PAP 35 mmHg, proximal ascending
aorta 4.5 cm
Echo 03/16/2025: nl LV/RV size and fxn, LVEF 60%, BioAVR 21/9 mmHg, tr AI, mild-mod MR, mild MS
Plan:
He is much improved.
Stable cardiology status for discharge
Will start Lasix 40 mg daily and check renal profile in 1 week
Discussed with primary service
Progress Note - Tool Maintenance Worker
Subjective
Date of Service: March 18, 2025
No chest pain or shortness of breath
Objective
Labs:
03/17/25 08:33
03/17/25 08:33
Labs
Hgb 10.1 g/dL (13.0-18.0) L 03/17/25 08:33
Hct 29.8 % (39.0-52.0) L 03/17/25 08:33
Plt Count 195 10^3/uL (130-400) 03/17/25 08:33
Sodium 132 mmol/L (135-145) L 03/17/25 08:33
Potassium 3.8 mmol/L (3.5-5.1) 03/17/25 08:33
BUN 15 mg/dl (9-20) 03/17/25 08:33
Creatinine 0.7 mg/dL (0.7-1.3) 03/17/25 08:33
Glucose 104 mg/dl (70-99) H 03/17/25 08:33
Troponins
03/15/25 03/15/25
14:44 21:02
Troponin I 0.153 H* 0.131 H*
Vital Signs and I&O:
Vital Signs
Temp Pulse Resp BP Pulse Ox
98.1 F 81 16 105/60 98
03/18/25 08:11 03/18/25 08:11 03/18/25 08:11 03/18/25 08:11 03/18/25 08:11
Vital Signs
Temp Pulse Resp BP Pulse Ox
98.1 F 81 16 105/60 98
03/18/25 08:11 03/18/25 08:11 03/18/25 08:11 03/18/25 08:11 03/18/25 08:11
Intake & Output
03/16/25 03/17/25 03/18/25 03/19/25
06:59 06:59 06:59 06:59
Intake Total 260 / 260 1210 / 1210 1220 / 1220
Output Total 1525 / 1525 2555 / 2555 2175 / 2175
Balance -1265 / -1265 -1345 / -1345 -955 / -955
Physical Exam
Physical Exam
General: Well developed, well nourished in NAD.
Neck: Supple, no JVD, HJR, carotids +2 B/L, no bruits bilaterally.
Heart: Non displaced PMI, RRR, no murmurs, No S3, S4, no rubs.
Lungs: Rhonchi at the right base
Extremities: No clubbing, cyanosis or edema bilaterally.
Neuro: Grossly nonfocal, awake, alert and oriented x3.
--- NOTE | 2025-03-18 11:14 | W.PN.HOSP.TC ---
Today's Communication/Plan
-
DC
Assessment / Plan
Assessment / Plan
Postop low-grade fever-suspect possibly urinary source
UTI-patient with dysuria and frequency with positive urinalysis. Urine culture positive for Klebsiella aerogenes. CW ceftriaxone . Pt on Dofetilide and interacts with cipro and Bactrim. Not bacteremic. Follow white count-normalized. No urinary
retention.
Will switch to oral cefdinir to finish another 5 days of antibiotic.
Sepsis-meets the criteria for sepsis with fever and white count.
Shortness of breath
Left pleural effusion s/p thoracentesis at 1150 mL
Lower extremity edema noted
Clinical concern is for acute CHF diastolic heart failure. Continue with diuretics per cardiology.
Follow-up chest x-ray showed improved aeration in the left lung. There minimal basilar opacities which I suspect may be secondary to poor inspiration. Clinically not acting like pneumonia.
Paroxysmal atrial fibrillation
In sinus rhythm
Continue with beta-maria teresa, dofetilide. Follow on telemetry
S/p surgical AVR, CABG, SEBASTIAN clipping-patient feels he was improving postsurgically in general.
CT surgery aware.
Discussed with at bedside
Medically stable for discharge.
Total time of discharge 32 minutes
Anticipated Discharge: Today
Subjective/Interval History
-
Date of Service: March 18, 2025
Much improved dysuria. Improving frequency of urine too. His stream is slower compared to baseline.
No Fever chills.
Improved shortness of breath.
Pain.
No dizziness.
Objective Data
-
Vital Signs:
Vital Signs
Temp Pulse Resp BP Pulse Ox
98.1 F 81 16 105/60 98
03/18/25 08:11 03/18/25 08:11 03/18/25 08:11 03/18/25 08:11 03/18/25 08:11
I&O
03/17/25 03/18/25 03/19/25
06:59 06:59 06:59
Intake Total 1210 / 1210 1220 / 1220
Output Total 2555 / 2555 2175 / 2175
Balance -1345 / -1345 -955 / -955
Physical Exam
-
General: Comfortable
Respiratory: Crackles (Improved crackles I do not hear them today.) and Non Labored Respirations; Negative Wheezes or Accessory Resp Muscle Use
Cardiac: Regular Rhythm and S1/S2; Negative Tachycardic
Neuro: AO x 3
Psych: Calm
Data Reviewed
-
Labs: Labs Reviewed by me
[2025-03-18 11:27] VITALS: BP 121/67
--- NOTE | 2025-03-18 11:29 | W.DCSUMMARY ---
Discharge Summary
Discharge Data
Date of Admission: 03/15/25
Date of Discharge: 03/18/25
-
Pending Results: No
Hospital Course
Primary diagnosis:
Urinary tract infection with Klebsiella aerogenes
Sepsis secondary to above
Pleural effusion status postthoracentesis
Acute diastolic CHF
Secondary diagnosis:
Recent surgical AVR, CABG, left atrial clipping
Paroxysmal atrial fibrillation
Hospital course:
Presented with dysuria and frequency symptoms. He also had fevers with it. His urine analysis was positive and cultures was growing Klebsiella aerogenes. He was treated with ceftriaxone's once he was clinically improved he was switched to oral
cefdinir and discharged home.
He also was complaining shortness of breath and chest x-ray showed large left pleural effusion had a thoracentesis for 1150 mL. Lower extremity edema all clinical concern for acute diastolic heart failure. He was seen by cardiology was initiated
on diuretics. He did better. He was discharged home on normal Lasix. Echo on this admission showed biotic stenosis is resolved. Mean gradient was 9 mmHg. Normal LV size and function. EF is 60%. Mild to moderate MR noted. Based on the
clinical data and no clinical evidence to support pneumonia.
He tells me he is not on gabapentin which was used for postoperative pain and he does not have it now.
Consultants on board:
Cardiology - Sejal Watson
Discharge Plan
-
Patient Disposition: Home (Routine Discharge)
Discharge Diagnosis/Procedures: UTI with Kleb aerogenes;left pleural effusion s/p thoracentesis
Diet: Low Cholesterol
Activity: As tolerated
Driving Restrictions: As prior to admission
Bathing Restrictions: None
Blood Work: BMP blood work in 1 week -arrange through your PCP
Specialty Instructions: Weigh Daily- Call MD for wt gain/loss 3 lbs overnight/5 lbs in 1 week
Referrals:
Niko Moseley MD [Family Provider, Family Practice] - in less than 1 week
Jose Luis Tompkins MD [Active, Cardiology] - in one week
Prescriptions:
New
furosemide 40 mg Tablet
40 mg PO DAILY Qty: 30 0RF
cefdinir 300 mg capsule
300 mg PO BID Qty: 10 0RF
Continued
Eliquis 5 MG tablet
5 mg PO BID
multivitamin Tablet
1 tab PO DAILY
cholecalciferol (vitamin D3) [Vitamin D3] 50 mcg (2,000 unit) Capsule
50 mcg PO BID
dofetilide 250 MCG capsule
250 mcg PO Q12
aspirin 81 mg tablet,delayed release (DR/EC)
81 mg PO DAILY
acetaminophen 325 mg Tablet
650 mg PO Q4HPRN PRN (Reason: mild pain,headache,temp >101F ) Qty: 0 0RF
oxycodone 5 mg Tablet
5 mg PO Q4HPRN PRN (Reason: severe pain) Qty: 10 0RF
ezetimibe 10 mg Tablet
10 mg PO HS Qty: 30 2RF
pantoprazole [Protonix] 40 mg tablet,delayed release (DR/EC)
40 mg PO DAILY Qty: 30 2RF
metoprolol succinate [Toprol XL] 25 mg Tablet Extended Release 24 Hr
50 mg PO BID
Discontinued
gabapentin 100 mg capsule
100 mg PO TID Qty: 30 0RF
Discharge Orders:
Discharge Patient (As Directed); Ordered 03/18/25
Ordered By: Jordan Alcala
Discharge Date and Time
Print Language: MALIAN
--- NOTE | 2025-03-18 11:34 | CM ---
Patient will d/c home today
Seen patient bedside w/ family, agreeable to d/c. No needs identified at this time
IMM verbally reviewed, copy provided, copy on chart
Plan: Home, no needs
--- NOTE | 2025-03-18 12:14 | PTCARENOTE ---
Discharge paperwork reviewed and signed with patient at bedside. Family at bedside also. IV removed at this time. Instructions signed and all questions answered at this time. Patient escorted via wheelchair accompanied by PCT.
== END 2025-03-18 12:14 | disposition home or self-care (01) | DRG 871 ==
LOC: 4 WEST ACU 16:25
PROVIDERS: Emergency Medicine; Nurse Practitioner Family; Radiology Vascular & Interventional Radiology; ADMITTING PHYSICIAN Internal Medicine; ATTENDING PHYSICIAN Internal Medicine; EMERGENCY PHYSICIAN Emergency Medicine; FAMILY PHYSICIAN Family Medicine; OTHER PHYSICIAN Internal Medicine Cardiovascular Disease
PROC: 0W9B3ZZ Drainage of Left Pleural Cavity, Percutaneous Approach (ICD-10-PCS; 2025-03-16)
DX: A41.9 Sepsis, unspecified organism (principal); I50.31 Acute diastolic (congestive) heart failure; I48.19 Other persistent atrial fibrillation; N39.0 Urinary tract infection, site not specified; I5A Non-ischemic myocardial injury (non-traumatic); I11.0 Hypertensive heart disease with heart failure; I25.10 Atherosclerotic heart disease of native coronary artery without angina pectoris; G47.33 Obstructive sleep apnea (adult) (pediatric); E78.00 Pure hypercholesterolemia, unspecified; I35.0 Nonrheumatic aortic (valve) stenosis; N40.0 Benign prostatic hyperplasia without lower urinary tract symptoms; B96.1 Klebsiella pneumoniae [K. pneumoniae] as the cause of diseases classified elsewhere; Y95 Nosocomial condition; Z95.1 Presence of aortocoronary bypass graft; Z79.01 Long term (current) use of anticoagulants; Z95.3 Presence of xenogenic heart valve; Z88.5 Allergy status to narcotic agent; Z88.8 Allergy status to other drugs, medicaments and biological substances; Z79.82 Long term (current) use of aspirin; Z87.440 Personal history of urinary (tract) infections; Z87.74 Personal history of (corrected) congenital malformations of heart and circulatory system
CPT/HCPCS: 32555; 51798; 71045; 80048; 80053; 81003; 81015; 83605; 83880; 84484; 85025; 85027; 87040; 87070; 87077; 87086; 87181; 87186; 87205; 93005; 93308; 93321; 93325; 96365; 96375; 99285

== ENCOUNTER → 2025-03-22 12:10 | Outpatient (REF) | payer OTHER, MEDICARE, SELFPAY | LOC: RAD 12:10 | PROVIDERS: ATTENDING PHYSICIAN Nurse Practitioner | DX: R06.09 Other forms of dyspnea (principal) | CPT/HCPCS: 71046 ==

== ENCOUNTER 2025-04-30 11:57 | Outpatient (RCR) | payer MEDICARE, OTHER, SELFPAY | END 2025-04-30 23:59 | disposition home or self-care (01) | LOC: CRHB 11:57 | PROVIDERS: ATTENDING PHYSICIAN Internal Medicine Cardiovascular Disease; FAMILY PHYSICIAN Family Medicine | DX: Z95.1 Presence of aortocoronary bypass graft (principal) | CPT/HCPCS: G0422; G0423 ==

== ENCOUNTER 2025-06-01 11:40 | Outpatient (RCR) | payer MEDICARE, OTHER, SELFPAY | END 2025-06-01 23:59 | disposition home or self-care (01) | LOC: CRHB 11:40 | PROVIDERS: ATTENDING PHYSICIAN Internal Medicine Cardiovascular Disease; FAMILY PHYSICIAN Family Medicine | DX: I25.10 Atherosclerotic heart disease of native coronary artery without angina pectoris (principal); Z95.1 Presence of aortocoronary bypass graft | CPT/HCPCS: G0422; G0423 ==

== ENCOUNTER 2025-06-29 11:06 | Outpatient (RCR) | payer MEDICARE, OTHER, SELFPAY ==
[2025-06-13 11:07] LABS: HDL Cholesterol 47 mg/dl; LDL Cholesterol, Calculated 87 mg/dl; Very Low Density Lipoprotein 17 mg/dl (0-30)
== END 2025-06-29 23:59 | disposition home or self-care (01) ==
LOC: CRHB 11:06
PROVIDERS: ATTENDING PHYSICIAN Internal Medicine Cardiovascular Disease; FAMILY PHYSICIAN Family Medicine
DX: I25.10 Atherosclerotic heart disease of native coronary artery without angina pectoris (principal); Z95.1 Presence of aortocoronary bypass graft (principal)
CPT/HCPCS: 36415; 80061; G0422; G0423

== ENCOUNTER 2025-07-02 10:42 | Outpatient (RCR) | payer MEDICARE, OTHER, SELFPAY | END 2025-07-02 23:59 | disposition home or self-care (01) | LOC: CRHB 10:42 | PROVIDERS: ATTENDING PHYSICIAN Internal Medicine Cardiovascular Disease; FAMILY PHYSICIAN Family Medicine | DX: I25.10 Atherosclerotic heart disease of native coronary artery without angina pectoris (principal); Z95.1 Presence of aortocoronary bypass graft | CPT/HCPCS: G0422; G0423 ==